=== PATIENT | male | born 1945 | race Caucasian/White ===

== ENCOUNTER 2022-07-11 09:22 | Emergency (ER) | payer MEDICARE, SELFPAY ==
--- NOTE | ~2022-07-11 | CT_ITS ---
EXAMINATION: HEAD CT WITHOUT CONTRAST CERVICAL SPINE CT WITHOUT CONTRAST CLINICAL INFORMATION: Fall. Pain. COMPARISON: None. TECHNIQUE: Contiguous axial imaging of the head was performed without the administration of IV contrast. Axial multidetector volumetric images were also performed through the cervical spine without intravenous contrast. Multiplanar reconstructed images in coronal and sagittal orientations were submitted. This CT examination was performed using dose optimization techniques as appropriate, variously including the following: *Automated exposure control *Adjustment of mA and/or kV according to patient size (this includes techniques or standardized protocols for targeted exams where dose is matched to indication/reason for exam; i.e. extremities or head) *Use of iterative reconstruction technique DOSE: 982 mGy-cm FINDINGS: HEAD: There is no evidence of acute intracranial hemorrhage or territorial infarction. No abnormal mass-effect or midline shift. No extra-axial fluid collections. Lozano to white matter differentiation is well preserved. Mild enlargement of the ventricles, sulci, and extra-axial CSF spaces is indicative of parenchymal volume loss. A few foci of hypoattenuation in the subcortical and periventricular white matter are most consistent with chronic microangiopathic changes. Small lacunar infarct in the right cerebellar hemisphere. Calcific atherosclerosis is present within the cavernous segments of the internal carotid arteries. The soft tissues and osseous structures are normal. The sinuses and mastoid air cells are clear. CERVICAL SPINE: Vertebral body heights are normal. No fractures of the vertebral bodies or posterior elements. Vertebral alignment is normal. No subluxation. Degenerative changes are present at the craniocervical and atlantoaxial articulations, though normal alignment is maintained. Moderate degenerative disc disease is evident at C5-C6 and C6-C7 with marked loss of vertebral disc height, endplate osteophytes, endplate irregularity, subchondral cystic change, and the mineralization, and uncovertebral osteophytes. More mild degenerative disc disease is present at other levels. Facet arthropathy is most severe on the left at C3-C4 and, to a lesser extent, C4-C5. Minimal right-sided facet arthropathy. There is at least mild central canal stenosis at C5-C6 and C6-C7 due to posterior disc osteophyte complexes. Multilevel neural foraminal encroachment is seen on the left due to uncovertebral and facet osteophytes, most notably from C3-C4 through C6-C7. Additional neural foraminal encroachment is present on the right at C4-C5 and C5-C6. No significant paravertebral soft tissue swelling. Atherosclerotic calcifications are present in the carotid arteries. Centrilobular pulmonary emphysema is evident in the apices. CT/CT cervical spine wo IV con IMPRESSION: 1. No acute intracranial pathology. 2. No acute fracture or malalignment in the cervical spine. 3. Multilevel degenerative spondylosis in the cervical spine, most notably at C5-C6 and C6-C7.
--- NOTE | ~2022-07-11 | XR_ITS ---
EXAMINATION: XR FOREARM, RIGHT CLINICAL INFORMATION: Fall COMPARISON: None TECHNIQUE: AP and lateral views of the right forearm were obtained. FINDINGS: The bones and soft tissues are normal. No fracture. Imaged portions of the elbow and wrist are unremarkable. XR/XR forearm RT 2V IMPRESSION: No fracture or dislocation.
--- NOTE | ~2022-07-11 | XR_ITS ---
EXAMINATION: XR HIP, RIGHT CLINICAL INFORMATION: Fall COMPARISON: None TECHNIQUE: Two views of the right hip. FINDINGS: Intramedullary screws through the right femur properly positioned intact. No radiographic evidence of acute fracture or dislocation. Adjacent pelvic bones are intact. There are vascular calcifications. XR/XR hip RT w PEL1V IMPRESSION: * No radiographic evidence of acute fracture. * Intramedullary screws through the right femur intact.
--- NOTE | 2022-07-11 09:32 | ECG_ITS ---
Test Reason : DIZZINESS Blood Pressure : / mmHG Vent. Rate : 063 BPM Atrial Rate : 064 BPM P-R Int : 000 ms QRS Dur : 100 ms QT Int : 448 ms P-R-T Axes : 000 -07 003 degrees QTc Int : 458 ms Normal sinus rhythm ST & T wave abnormality, consider lateral ischemia Abnormal ECG No previous ECGs available Referred By: Lovely Núñez Electronically Signed By:Emile Hager
--- NOTE | 2022-07-11 09:33 | ED.FALL ---
HPI - Fall General Chief Complaint: Fall Stated Complaint: R arm pain post fall yesterday per EMS Time Seen by Provider: 07/11/22 09:26 Source: patient and EMS Mode of arrival: EMS Limitations: no limitations History of Present Illness HPI Narrative: 76 yo with history of HTN, hx mechanical fall Jan 2022 with hip fracture who presents to the ER from home via EMS for evaluation of right forearm pain s/p fall at home yesterday. He is a poor historian. He reports yesterday he was walking with his cane in his home when he thinks he tripped over the edge of a side table. He fell down with his right arm out. He does not think he hit his head. He crawled over to the couch and was able to get up. He did not have his LifeAlert button. He states he lives home alone. He reports ongoing right forearm pain since the fall. No other injuries. No wrist, elbow or shoulder pain. No hip pain. No headache or neck pain. He thinks he was a little dizzy after the fall. He denies any chest pain, SOB or current dizziness. MD complaint: fall Onset (ago): day(s) Fall from: standing Fall witnessed: no Place fall occurred: home Loss of consciousness: none Prolonged down time: no Symptoms prior to fall: none Context: tripped/slipped Location of injury - extremities: right: forearm Severity: moderate Severity scale (1-10): 6 Quality: aching Associated symptoms (after fall): denies Related Data Home Medications Medication Instructions Recorded Confirmed aspirin 81 mg tablet,delayed 1 tab PO BID 07/11/22 07/11/22 release atenolol 50 mg tablet 1 tab PO DAILY 07/11/22 07/11/22 brimonidine 0.2 % eye drops 1 drp ophthalmic-Left BID 07/11/22 07/11/22 cyanocobalamin (vitamin B-12) 2 tab PO DAILY 07/11/22 07/11/22 1,000 mcg tablet enzalutamide 80 mg tablet (Xtandi) 2 tab PO DAILY 07/11/22 07/11/22 Allergies Allergy/AdvReac Type Severity Reaction Status Date / Time No Known Allergies Allergy Unverified 02/22/20 14:41 Review of Systems Review of Systems: Yes all other systems are reviewed and are negative [facility] Social History Social History Advance Directives: Yes Advance Directives Information Provided: No Advance Directives on File: No Physical Exam Vital Signs: Vital Signs: Last Vital Signs Temp 98.7 F 07/11/22 16:25 Pulse 70 07/11/22 16:25 Resp 18 07/11/22 16:25 BP 153/65 H 07/11/22 16:25 Pulse Ox 96 07/11/22 16:25 O2 Del Method 07/11/22 16:25 BMI result Body Mass Index 25.8 Appearance: Alert. Oriented X1. No acute distress. Eyes: Pupils equal, round and reactive to light. ENT: Pharynx normal. Neck: Normal inspection. Neck supple. No midline tenderness. CVS: Normal heart rate and rhythm. Pulses normal. Respiratory: No respiratory distress. Breath sounds normal. Abdomen: Soft and nontender. +BS x4 Skin: Skin warm and dry. Normal skin color. Normal skin turgor. No rashes. Extremities: No lower extremity edema. Right forearm with tenderness throughout, normal ROM of the right elbow and right shoulder, nontender. no swelling of the right forearm, no wounds. normal inspection and ROM of the wrist. Neuro: Oriented X 1. No motor deficit. No sensory deficit. Confused. Course Course Course Narrative: 76 yo male with history of HTN who ambulates with a cane at baseline presents to the ER with right forearm pain s/p mechanical fall yesterday. No gross deformity on exam but tender soft tissues in the right forearm. Will get XR forearm, basic labs, EKG (given reports of dizziness), CT head/neck given unwitnessed fall. Reevaluation(s) Reevaluation #1: XR negative for fracture. Labs showing only mild hyponatremia, Na+ 133 - not likely cause of his fall or resulting in any symptoms. He appears euvolemic vs slightly dry - po fluids encouraged. CT head/c-spine negative. at the bedside - she agrees with PT evaluation and possible STR. Physician observation started at 11am. Patient placed in physician observation because patient is awaiting PT evaluation for the possible need of short term rehab. At the time observation was started patient's vital signs were stable. Patient is alert and oriented to self, place and situation. Neuro exam is non-focal. CV: RRR and lungs are clear. Will continue to monitor. Reevaluation #2: patient found to have a urinary tract infection. he has no leukocytosis or fever. Will start on Ceftin b.i.d. while in the emergency department. Home medications have been reordered. P.o. diet ordered. He was seen by Physical therapy was recommending short-term rehab. Case management put out referrals. Will most likely spend the night in the emergency department while awaiting placement. Will continue to monitor. Medications Administered Discontinued Medications Generic Name Dose Route Start Last Admin Trade Name Dewey PRN Reason Stop Dose Admin Acetaminophen 975 mg 07/11/22 10:19 07/11/22 10:52 Acetaminophen 325 Mg Tablet PO 07/11/22 10:20 975 mg ONCE ONE Administration Medical Decision Making Medical Decision Making [facility] Narrative: 76-year-old male presenting to the ER for evaluation of right arm pain status post mechanical fall. Did endorse some dizziness, unclear before after the fall. Imaging, x-rays, EKG all ordered. Anticipate he will require placement to short-term rehab. Differential Diagnosis Differential Diagnoses: The differential diagnosis associated with the presentation includes mechanical fall, presyncope, syncope, orthostatic hypotension, possible broken forearm vs wrist fracture, doubt JOSEPH or PE, possible UTI causing weakness and gait instability, doubt ICH or traumatic neck injury Admission/Observation Consideration of admission/observation: Escalation of care including admission/observation considered Lab Data [facility] Lab Attestation statement: I reviewed the patient's lab results. mild hyponatremia, mild normocytic anemia 07/11/22 10:04 07/11/22 10:04 Labs: Lab Results 07/11/22 07/11/22 07/11/22 Range/Units 10:04 10:04 10:04 WBC 9.4 (4.8-10.8) X10*3/uL RBC 3.64 L (4.60-5.80) X10*6/uL Hgb 10.4 L (14.0-18.0) g/dl Hct 31.8 L (42.0-52.0) % MCV 87.4 (80.0-98.0) fL MCH 28.6 (27.0-33.0) pg MCHC 32.7 (31.0-36.0) g/dl RDW 14.2 (11.0-16.0) % Plt Count 267 (160-400) X10*3/uL MPV 8.9 L (9.4-12.4) fL Immature Gran % (Auto) 0.3 (0.0-0.4) % Neut % (Auto) 82.5 H (45-73) % Lymph % (Auto) 6.2 L (20-40) % Ferry % (Auto) 10.5 (2-11) % Eos % (Auto) 0.1 (0-4) % Baso % (Auto) 0.4 (0-2) % Lymph # (Auto) 0.6 L (1.2-4.9) X10*3/uL Ferry # (Auto) 1.0 (0.1-1.2) X10*3/uL Eos # (Auto) 0.0 (0.0-0.4) X10*3/uL Baso # (Auto) 0.0 (0.0-0.2) X10*3/uL Abs Immat Gran (auto) 0.03 (0.00-0.03) X10*3/uL Absolute Neuts (auto) 7.8 (2.0-8.3) x10*3/uL Absolute Nucleated RBC 0.000 (0.0-0.012) X10*3/uL Nucleated RBC % (auto) 0.0 (0.0-0.2) /100WBC Sodium 133 L (135-145) mmol/L Potassium 3.9 (3.3-5.1) mmol/L Chloride 100 (96-108) mmol/L Carbon Dioxide 24 (22-29) mmol/L Anion Gap 13 (12-20) BUN 12 (9-16) mg/dL Creatinine 0.79 (0.5-1.4) mg/dL Estim Creat Clear Calc 74.5 Estimated GFR > 60 Random Glucose 169 H (60-115) mg/dL Calcium 8.8 (8.4-10.2) mg/dL Magnesium 1.7 (1.6-2.6) mg/dL Total Bilirubin 1.1 H (0.0-1.0) mg/dL Direct Bilirubin 0.3 (0.0-0.5) mg/dL AST 15 (5-37) U/L ALT < 6 (0-40) U/L Alkaline Phosphatase 66 (39-117) U/L Troponin I High Sens 10.8 (<3.5-35.0) ng/L Total Protein 7.3 (6.5-8.0) g/dL Albumin 3.7 (3.5-5.0) g/dL Urine Color Urine Appearance Urine pH (5.0-9.0) Ur Specific [place] (1.005-1.025) Urine Protein (Neg-Trace) mg/dL Urine Glucose (UA) (Negative) mg/dL Urine Ketones (Negative) mg/dL Urine Blood (Negative) Urine Nitrite (Negative) Ur Leukocyte Esterase (Negative) Urine RBC (0-2) /HPF Urine WBC (0-5) /HPF Ur Squamous Epith Cells (0-2) /HPF Urine Bacteria (None Seen) Hyaline Casts (0-2) /LPF COVID-19 (AUDIE) (Negative) COVID-19 Clin Com 07/11/22 07/11/22 Range/Units 10:04 13:47 WBC (4.8-10.8) X10*3/uL RBC (4.60-5.80) X10*6/uL Hgb (14.0-18.0) g/dl Hct (42.0-52.0) % MCV (80.0-98.0) fL MCH (27.0-33.0) pg MCHC (31.0-36.0) g/dl RDW (11.0-16.0) % Plt Count (160-400) X10*3/uL MPV (9.4-12.4) fL Immature Gran % (Auto) (0.0-0.4) % Neut % (Auto) (45-73) % Lymph % (Auto) (20-40) % Ferry % (Auto) (2-11) % Eos % (Auto) (0-4) % Baso % (Auto) (0-2) % Lymph # (Auto) (1.2-4.9) X10*3/uL Ferry # (Auto) (0.1-1.2) X10*3/uL Eos # (Auto) (0.0-0.4) X10*3/uL Baso # (Auto) (0.0-0.2) X10*3/uL Abs Immat Gran (auto) (0.00-0.03) X10*3/uL Absolute Neuts (auto) (2.0-8.3) x10*3/uL Absolute Nucleated RBC (0.0-0.012) X10*3/uL Nucleated RBC % (auto) (0.0-0.2) /100WBC Sodium (135-145) mmol/L Potassium (3.3-5.1) mmol/L Chloride (96-108) mmol/L Carbon Dioxide (22-29) mmol/L Anion Gap (12-20) BUN (9-16) mg/dL Creatinine (0.5-1.4) mg/dL Estim Creat Clear Calc Estimated GFR Random Glucose (60-115) mg/dL Calcium (8.4-10.2) mg/dL Magnesium (1.6-2.6) mg/dL Total Bilirubin (0.0-1.0) mg/dL Direct Bilirubin (0.0-0.5) mg/dL AST (5-37) U/L ALT (0-40) U/L Alkaline Phosphatase (39-117) U/L Troponin I High Sens (<3.5-35.0) ng/L Total Protein (6.5-8.0) g/dL Albumin (3.5-5.0) g/dL Urine Color Yellow Urine Appearance Cloudy Urine pH 7.5 (5.0-9.0) Ur Specific [place] 1.020 (1.005-1.025) Urine Protein 100 (2+) H (Neg-Trace) mg/dL Urine Glucose (UA) Negative (Negative) mg/dL Urine Ketones Trace (Negative) mg/dL Urine Blood Negative (Negative) Urine Nitrite Negative (Negative) Ur Leukocyte Esterase Moderate (2+) H (Negative) Urine RBC 0-2 (0-2) /HPF Urine WBC >50 H (0-5) /HPF Ur Squamous Epith Cells 0-2 (0-2) /HPF Urine Bacteria 4+ (None Seen) Hyaline Casts 0-2 (0-2) /LPF COVID-19 (AUDIE) Negative (Negative) COVID-19 Clin Com See Note Independent Interpretation I performed an independent interpretation of an: EKG and Plain X-Ray Interpretation: EKG - normal sinus rhythm, HR 63 bpm, artifact present, borderline QRS 100 ms, no ST segment elevation, question trace 1mm ST depression in V5 and V6 Radiology Impression Discussion of test interpretation with radiology: I have reviewed the radiologist's reading. Radiologist Impression: XR/XR forearm RT 2V IMPRESSION: No fracture or dislocation. CT/CT cervical spine wo IV con IMPRESSION: 1.? No acute intracranial pathology. 2.? No acute fracture or malalignment in the cervical spine. 3.? Multilevel degenerative spondylosis in the cervical spine, most notably at C5-C6 and C6-C7. Independent Historian Clinical information obtained from an independent historian. History obtained from or confirmed by: Spouse and EMS Prescription Management I considered prescription management with: Pain Medication and Antibiotic Chronic Conditions Patient?s care impacted by: Hypertension Critical Care Time Critical Care Time Critical Care Time: No Discharge Plan Discharge Clinical Impression: Fall, Contusion of forearm, right, Acute UTI Patient Disposition: Still a Patient Prescriptions: No Action cyanocobalamin (vitamin B-12) 1,000 mcg tablet 2 tab PO DAILY aspirin 81 mg tablet,delayed release (DR/EC) 1 tab PO BID brimonidine 0.2 % drops 1 drp ophthalmic-Left BID atenolol 50 mg tablet 1 tab PO DAILY Xtandi 80 mg tablet 2 tab PO DAILY
[2022-07-11 09:37] VITALS: BP 148/64; BP 189/73; PULSE 73; PULSE 75; RESP 16; TEMP 35.8; O2SAT 96; O2SAT 97; BMI 25.8
[2022-07-11 10:09] LABS: MANUAL DIFF FLAG NO
[2022-07-11 10:11] LABS: Basophils Percent Auto 0.4 % (0-2); Eosinophils Percent Auto 0.1 % (0-4); Hematocrit 31.8 % (42.0-52.0); Hemoglobin 10.4 g/dl (14.0-18.0); Imm Gran Abs Auto 0.03 X10*3/uL (0.00-0.03); Imm Gran Pct Auto 0.3 % (0.0-0.4); Lymphocytes Absolute Auto 0.6 X10*3/uL (1.2-4.9); Lymphocytes Percent Auto 6.2 % (20-40); Mean Corpuscular HGB Conc 32.7 g/dl (31.0-36.0); Mean Corpuscular Hemoglobin 28.6 pg (27.0-33.0); Mean Corpuscular Volume 87.4 fL (80.0-98.0); Mean Platelet Volume 8.9 fL (9.4-12.4); Monocytes Percent Auto 10.5 % (2-11); Neutrophils Absolute Auto 7.8 x10*3/uL (2.0-8.3); Neutrophils Percent Auto 82.5 % (45-73); Platelet Count 267 X10*3/uL (160-400); Red Blood Count 3.64 X10*6/uL (4.60-5.80); Red Cell Distribution Width 14.2 % (11.0-16.0); White Blood Count 9.4 X10*3/uL (4.8-10.8)
[2022-07-11 10:23] LABS: COVID-19 Test Negative (Negative); IDNOW Serial# 16C4AD1C
[2022-07-11 10:46] LABS: Alanine Aminotransferase < 6 U/L (0-40); Albumin Level 3.7 g/dL (3.5-5.0); Alkaline Phosphatase 66 U/L (39-117); Anion Gap 13 (12-20); Aspartate Amino Transferase 15 U/L (5-37); Bilirubin Direct 0.3 mg/dL (0.0-0.5); Bilirubin Total 1.1 mg/dL (0.0-1.0); Blood Urea Nitrogen 12 mg/dL (9-16); Calcium 8.8 mg/dL (8.4-10.2); Carbon Dioxide 24 mmol/L (22-29); Chloride 100 mmol/L (96-108); Creatinine Clr Calc Pharmacy 74.5; Estimated Glomerular Filt Rate > 60; Glucose Random 169 mg/dL (60-115); Magnesium 1.7 mg/dL (1.6-2.6); Potassium 3.9 mmol/L (3.3-5.1); Sodium 133 mmol/L (135-145); Total Protein 7.3 g/dL (6.5-8.0)
[2022-07-11 10:50] LABS: Troponin-I High Sensitivity 10.8 ng/L (<3.5-35.0)
[2022-07-11] MEDS: Acetaminophen 325 MG TABLET 975 MG PO (10:52)
[2022-07-11 11:09] VITALS: BP 127/59; PULSE 58; RESP 18; TEMP 36.4; O2SAT 98
--- NOTE | 2022-07-11 12:46 | PHA.MEDREC ---
Pharmacy Consult ? Medication Reconciliation Pharmacy has completed the medication reconciliation.
[2022-07-11 13:57] LABS: Appearance Urine Cloudy; Color Urine Yellow; Glucose Urine UA Negative (Negative); Leukocyte Esterase Urine Moderate (2+) (Negative); Nitrite Urine Negative (Negative); PH 7.5 (5.0-9.0); UMIC TRIGGER UACC YES; Urine Blood Negative (Negative); Urine Ketones Trace mg/dL (Negative); Urine Protein 100 (2+) mg/dL (Neg-Trace)
[2022-07-11 13:59] LABS: Bacteria Urine 4+ (None Seen); Hyaline Casts Urine 0-2 /LPF (0-2); RBC Urine 0-2 /HPF (0-2); Squamous Epithelial Cell Urine 0-2 /HPF (0-2); UACC Culture Trigger YES; WBC Urine >50 /HPF (0-5)
--- NOTE | 2022-07-11 14:46 | PC.NURSE ---
Physical therapy with patient
[2022-07-11 16:25] VITALS: BP 153/65; PULSE 70; RESP 18; TEMP 37.1; O2SAT 96
[2022-07-11 19:31] VITALS: BP 167/72; PULSE 88; RESP 18; TEMP 36.6; O2SAT 96
[2022-07-11] MEDS: Aspirin Enteric Coated 81 MG TABLET.DR PO (20:43)
[2022-07-11] MEDS: QUEtiapine Fumarate 25 MG TABLET PO (20:43)
[2022-07-11] MEDS: Brimonidine Tartrate 0.2% Oph 5 ML BOTTLE 1 DROP EYE-LEFT (20:59)
[2022-07-11 22:40] VITALS: BP 179/78; PULSE 101; RESP 18; TEMP 36.7; O2SAT 97
[2022-07-12] MEDS: Acetaminophen 325 MG TABLET 975 MG PO (00:18)
[2022-07-12 06:00] VITALS: BP 118/50; PULSE 82; RESP 14; TEMP 36.6; O2SAT 93
[2022-07-12] MEDS: Cyanocobalamin (Vitamin B-12) 1,000 MCG TABLET 1000 MCG PO (08:58)
[2022-07-12] MEDS: atenoloL 50 MG TABLET PO (08:58)
[2022-07-12] MEDS: Aspirin Enteric Coated 81 MG TABLET.DR PO (08:59)
[2022-07-12 09:02] VITALS: BP 122/60; PULSE 74; RESP 24; TEMP 36.4; O2SAT 96
[2022-07-12] MEDS: Brimonidine Tartrate 0.2% Oph 5 ML BOTTLE 1 DROP EYE-LEFT (09:43)
--- NOTE | 2022-07-12 10:20 | MHC.CM.ED ---
Patient remains in ER. Received case management consult on 07/11 due to fall and arm pain. Physical therapy eval completed. Short term rehab is recommended. Patient has been to [facility] in the past and requested referral there. [facility] does not have a bed to offer at this time. However, was willing to offer a bed at [facility] in [place]. Both patient and , Marisa, felt this was too far and requested referral be broadcasted locally. [facility] is able to offer a bed. Patient accepts. Patient can leave at 12pm. Vania BATEMAN booked. Med [facility] with chart. Patient, Marisa, Chauncey FERNANDES and Gayle OSORIO aware. Continue to monitor for d/c needs.
--- NOTE | 2022-07-12 10:34 | PC.NURSE ---
pt resting peacefully. denies pain. reports he ate breakfast and was cleaned up by Nasrin. took all am meds, including eyedrop. VSS. pleasant in conversation. no complaints. waiting for EMS to transfer to [facility]
== END 2022-07-12 12:38 | disposition skilled nursing facility (03) ==
PROVIDERS: Physician Assistant; Emergency Provider Student in an Organized Health Care Education/Training Program; PCP Internal Medicine
DX: S50.11XA Contusion of right forearm, initial encounter (principal); W01.0XXA Fall on same level from slipping, tripping and stumbling without subsequent striking against object, initial encounter; N39.0 Urinary tract infection, site not specified; B96.4 Proteus (mirabilis) (morganii) as the cause of diseases classified elsewhere; I10 Essential (primary) hypertension; Z20.822 Contact with and (suspected) exposure to COVID-19; Y93.89 Activity, other specified; Y92.019 Unspecified place in single-family (private) house as the place of occurrence of the external cause; Y99.9 Unspecified external cause status
CPT/HCPCS: 51701; 70450; 72125; 73090; 73502; 80048; 80076; 81001; 83735; 84484; 85025; 87086; 87088; 87186; 87635; 93005; 97163; 99285

== ENCOUNTER 2022-08-03 06:05 | Outpatient (REF) | payer SELFPAY ==
[2022-08-03 06:02] LABS: MANUAL DIFF FLAG NO
[2022-08-03 06:32] LABS: Basophils Absolute Auto 0.1 X10*3/uL (0.0-0.2); Basophils Percent Auto 0.9 % (0-2); Eosinophils Absolute Auto 0.3 X10*3/uL (0.0-0.4); Eosinophils Percent Auto 4.9 % (0-4); Hematocrit 29.5 % (42.0-52.0); Hemoglobin 9.6 g/dl (14.0-18.0); Imm Gran Abs Auto 0.03 X10*3/uL (0.00-0.03); Imm Gran Pct Auto 0.6 % (0.0-0.4); Lymphocytes Absolute Auto 1.4 X10*3/uL (1.2-4.9); Lymphocytes Percent Auto 26.2 % (20-40); Mean Corpuscular HGB Conc 32.5 g/dl (31.0-36.0); Mean Corpuscular Hemoglobin 27.9 pg (27.0-33.0); Mean Corpuscular Volume 85.8 fL (80.0-98.0); Mean Platelet Volume 9.4 fL (9.4-12.4); Monocytes Absolute Auto 0.8 X10*3/uL (0.1-1.2); Monocytes Percent Auto 15.8 % (2-11); Neutrophils Absolute Auto 2.7 x10*3/uL (2.0-8.3); Neutrophils Percent Auto 51.6 % (45-73); Platelet Count 301 X10*3/uL (160-400); Red Blood Count 3.44 X10*6/uL (4.60-5.80); Red Cell Distribution Width 14.9 % (11.0-16.0); White Blood Count 5.3 X10*3/uL (4.8-10.8)
[2022-08-03 06:36] LABS: Anion Gap 15 (12-20); Blood Urea Nitrogen 13 mg/dL (9-16); Calcium 8.4 mg/dL (8.4-10.2); Carbon Dioxide 22 mmol/L (22-29); Chloride 102 mmol/L (96-108); Estimated Glomerular Filt Rate > 60; Glucose Random 85 mg/dL (60-115); Potassium 4.2 mmol/L (3.3-5.1); Sodium 135 mmol/L (135-145)
== END 2022-08-03 06:06 | disposition home or self-care (01) ==
LOC: HO.MMNH1L 06:05
PROVIDERS: Visit Provider Family Medicine
DX: I10 Essential (primary) hypertension (principal)
CPT/HCPCS: 36415; 80048; 85025

== ENCOUNTER 2022-11-29 17:30 | Inpatient (IN) | payer MEDICARE, SELFPAY ==
--- NOTE | 2022-11-29 | ECG_ITS ---
Test Reason : WEAKNESS Blood Pressure : / mmHG Vent. Rate : 074 BPM Atrial Rate : 000 BPM P-R Int : 000 ms QRS Dur : 096 ms QT Int : 420 ms P-R-T Axes : 000 004 078 degrees QTc Int : 466 ms Artifact in tracing Normal sinus rhythm ST & T wave abnormality, consider anterolateral ischemia Abnormal ECG When compared with ECG of 11-JUL-2022 10:37, No significant changes seen Referred By: Generic ED Physician Electronically Signed By:CHARLEE MEDINA
--- NOTE | ~2022-11-29 | XR_ITS ---
EXAMINATION: XR CHEST CLINICAL INFORMATION: Pneumonia COMPARISON: None available. TECHNIQUE: Frontal view of the chest was obtained. FINDINGS: There is mild cardiac enlargement. There is no evidence of gross CHF. Mild peribronchial thickening and some reticular nodular changes with bibasilar atelectasis. No gross consolidation with air bronchograms is seen. No pleural effusions. XR/XR chest 1V IMPRESSION: No acute intrathoracic disease. Mild cardiomegaly. Bibasilar atelectasis.
[2022-11-29 17:45] VITALS: BP 128/72; BP 129/52; PULSE 70; PULSE 74; RESP 16; TEMP 38.2; O2SAT 95; O2SAT 97; BMI 18.1
[2022-11-29 18:04] LABS: MANUAL DIFF FLAG NO
[2022-11-29 18:05] LABS: Basophils Percent Auto 0.4 % (0-2); Eosinophils Absolute Auto 0.1 X10*3/uL (0.0-0.4); Eosinophils Percent Auto 2.1 % (0-4); Hematocrit 26.8 % (42.0-52.0); Hemoglobin 8.9 g/dl (14.0-18.0); Imm Gran Abs Auto 0.04 X10*3/uL (0.00-0.03); Imm Gran Pct Auto 0.8 % (0.0-0.4); Lymphocytes Absolute Auto 0.6 X10*3/uL (1.2-4.9); Lymphocytes Percent Auto 12.3 % (20-40); Mean Corpuscular HGB Conc 33.2 g/dl (31.0-36.0); Mean Corpuscular Hemoglobin 28.3 pg (27.0-33.0); Mean Corpuscular Volume 85.1 fL (80.0-98.0); Mean Platelet Volume 8.7 fL (9.4-12.4); Monocytes Absolute Auto 0.6 X10*3/uL (0.1-1.2); Monocytes Percent Auto 12.8 % (2-11); Neutrophils Absolute Auto 3.5 x10*3/uL (2.0-8.3); Neutrophils Percent Auto 71.6 % (45-73); Platelet Count 207 X10*3/uL (160-400); Red Blood Count 3.15 X10*6/uL (4.60-5.80); White Blood Count 4.9 X10*3/uL (4.8-10.8)
--- NOTE | 2022-11-29 18:17 | ED_ITS ---
HPI - Weakness General Chief complaint: Weakness Stated complaint: weakness Time Seen by Provider: 11/29/22 18:12 Source: patient and family Mode of arrival: ambulatory Limitations: no limitations History of Present Illness HPI Narrative: Patient is 77 years old with history of central hypertension bladder and pros camacho cancer and dementia brought by family for increased weakness and little worsening of the confusion for last few days patient recently was treated with antibiotic for UTI a month ago no fever no chills no cough no abdominal pain no recent fall no cough or shortness of breath Related Data Home Medications Medication Instructions Recorded Confirmed enzalutamide 80 mg tablet (Xtandi) 2 tab PO DAILY 07/11/22 11/29/22 atenolol 25 mg tablet 25 mg PO DAILY 11/29/22 11/29/22 cyanocobalamin (vitamin B-12) 2,000 mcg PO DAILY 11/29/22 11/29/22 1,000 mcg tablet enzalutamide 80 mg tablet (Xtandi) 80 mg PO DAILY 11/29/22 11/29/22 Allergies Allergy/AdvReac Type Severity Reaction Status Date / Time No Known Allergies Allergy Unverified 02/22/20 14:41 Review of Systems Review of Systems: Yes all other systems are reviewed and are negative [facility] Past Medical History Medical History Bladder cancer Dementia Essential hypertension Hyponatremia Social History Social History Patient Tobacco Use Status: Former Tobacco user Advance Directives: Yes Advance Directives Information Provided: No Advance Directives on File: No Nutrition Risks: No Nutritional Risk Physical Exam Vital Signs: Vital Signs: Last Vital Signs Temp 97.7 F 11/30/22 00:05 Pulse 79 11/30/22 00:05 Resp 16 11/30/22 00:05 BP 134/63 11/30/22 00:05 Pulse Ox 97 11/30/22 00:05 O2 Del Method Room Air 11/30/22 00:05 BMI result Body Mass Index 18.1 Appearance: Alert. Oriented X2. No acute distress. Eyes: PERRLA, No Nystagmus ENT: Pharynx normal. Oral Mucosa moist Neck: Normal inspection. Neck supple. CVS: Normal heart rate and rhythm. Pulses normal. Respiratory: No respiratory distress. Equal air entry bilateral, no wheezing/rales/rhonchi Abdomen: Soft and nontender. Bowel sounds are present, no mass palpable, no CVA tenderness Skin: Skin warm and dry. Normal skin color. Normal skin turgor. Extremities: No lower extremity edema. No calf tenderness Neuro: Oriented X2. No motor deficit. No sensory deficit.No cerebellar signs , cranial nerves II-XII intact Medications Administered Generic Name Dose Route Start Last Admin Trade Name Freq PRN Reason Stop Dose Admin Sodium Chloride 3 ml 11/30/22 00:00 11/29/22 23:44 0.9 % Sodium Chloride Flush 3 Ml Syringe IVFLUSH 3 ml QSHIFT CHAVEZ Administration Discontinued Medications Generic Name Dose Route Start Last Admin Trade Name Freq PRN Reason Stop Dose Admin Diphenhydramine HCl 50 mg 11/29/22 23:05 11/29/22 23:30 Diphenhydramine Hcl 50 Mg/Ml Vial IVPUSH 11/29/22 23:06 50 mg ONCE ONE Administration Sodium Chloride 1,000 mls @ 999 mls/hr 11/29/22 19:09 11/29/22 20:21 Ns IV 11/29/22 20:09 Infused .Q1H1M ONE Infusion Medical Decision Making Medical Decision Making [facility] Narrative: Patient has increased weakness and confusion workup shows hyponatremia with sodium of 124 with baseline sodium of 132, last sodium level was 135 on 08/03/2022. 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 Also UA showed WBC with no bacteria. Etiology of SIADH is not very clear for now will restrict the fluid to 1500 cc a day recheck sodium level in a.m. admit Differential Diagnosis UTI/metabolic/hyponatremia Consult Healthcare Provider Management of the patient was discussed with: Hospitalist Lab Data [facility] Lab Attestation statement: I reviewed the patient's lab results. 11/29/22 18:01 11/29/22 18:01 Labs: Lab Results 11/29/22 11/29/22 11/29/22 Range/Units 18:01 18:01 19:21 WBC 4.9 (4.8-10.8) X10*3/uL RBC 3.15 L (4.60-5.80) X10*6/uL Hgb 8.9 L (14.0-18.0) g/dl Hct 26.8 L (42.0-52.0) % MCV 85.1 (80.0-98.0) fL MCH 28.3 (27.0-33.0) pg MCHC 33.2 (31.0-36.0) g/dl RDW 17.0 H (11.0-16.0) % Plt Count 207 D (160-400) X10*3/uL MPV 8.7 L (9.4-12.4) fL Immature Gran % (Auto) 0.8 H (0.0-0.4) % Neut % (Auto) 71.6 (45-73) % Lymph % (Auto) 12.3 L (20-40) % [place] % (Auto) 12.8 H (2-11) % Eos % (Auto) 2.1 (0-4) % Baso % (Auto) 0.4 (0-2) % Lymph # (Auto) 0.6 L (1.2-4.9) X10*3/uL [place] # (Auto) 0.6 (0.1-1.2) X10*3/uL Eos # (Auto) 0.1 (0.0-0.4) X10*3/uL Baso # (Auto) 0.0 (0.0-0.2) X10*3/uL Abs Immat Gran (auto) 0.04 H (0.00-0.03) X10*3/uL Absolute Neuts (auto) 3.5 (2.0-8.3) x10*3/uL Absolute Nucleated RBC 0.000 (0.0-0.012) X10*3/uL Nucleated RBC % (auto) 0.0 (0.0-0.2) /100WBC Sodium 124 L (135-145) mmol/L Potassium 4.6 (3.3-5.1) mmol/L Chloride 92 L (96-108) mmol/L Carbon Dioxide 23 (22-29) mmol/L Anion Gap 14 (12-20) BUN 11 (9-16) mg/dL Creatinine 0.72 (0.5-1.4) mg/dL Estim Creat Clear Calc 69.3 Estimated GFR > 60 Random Glucose 97 (60-115) mg/dL Osmolality (281-305) mosm/kg Lactic Acid 1.0 (0.5-2.0) mmol/L Calcium 9.2 D (8.4-10.2) mg/dL Total Bilirubin 0.6 (0.0-1.0) mg/dL AST 14 (5-37) U/L ALT 5 (0-40) U/L Alkaline Phosphatase 78 (39-117) U/L Total Protein 7.6 (6.5-8.0) g/dL Albumin 3.1 L (3.5-5.0) g/dL TSH 2.20 (0.32-4.0) uIU/mL Urine Color Urine Appearance Urine pH (5.0-9.0) Ur Specific [place] (1.005-1.025) Urine Protein (Neg-Trace) mg/dL Urine Glucose (UA) (Negative) mg/dL Urine Ketones (Negative) mg/dL Urine Blood (Negative) Urine Nitrite (Negative) Ur Leukocyte Esterase (Negative) Urine RBC (0-2) /HPF Urine WBC (0-5) /HPF Ur Squamous Epith Cells (0-2) /HPF Urine Bacteria (None Seen) Hyaline Casts (0-2) /LPF Urine Osmolality (373-1093) mosm/kg Ur Random Sodium mmol/L Influenza Type A (PCR) (Negative) Influenza Type B (PCR) (Negative) RSV RNA Qual (PCR) (Negative) SARS-CoV-2 RNA (RT-PCR) (Negative) 11/29/22 11/29/22 11/29/22 Range/Units 20:05 21:42 21:42 WBC (4.8-10.8) X10*3/uL RBC (4.60-5.80) X10*6/uL Hgb (14.0-18.0) g/dl Hct (42.0-52.0) % MCV (80.0-98.0) fL MCH (27.0-33.0) pg MCHC (31.0-36.0) g/dl RDW (11.0-16.0) % Plt Count (160-400) X10*3/uL MPV (9.4-12.4) fL Immature Gran % (Auto) (0.0-0.4) % Neut % (Auto) (45-73) % Lymph % (Auto) (20-40) % [place] % (Auto) (2-11) % Eos % (Auto) (0-4) % Baso % (Auto) (0-2) % Lymph # (Auto) (1.2-4.9) X10*3/uL [place] # (Auto) (0.1-1.2) X10*3/uL Eos # (Auto) (0.0-0.4) X10*3/uL Baso # (Auto) (0.0-0.2) X10*3/uL Abs Immat Gran (auto) (0.00-0.03) X10*3/uL Absolute Neuts (auto) (2.0-8.3) x10*3/uL Absolute Nucleated RBC (0.0-0.012) X10*3/uL Nucleated RBC % (auto) (0.0-0.2) /100WBC Sodium (135-145) mmol/L Potassium (3.3-5.1) mmol/L Chloride (96-108) mmol/L Carbon Dioxide (22-29) mmol/L Anion Gap (12-20) BUN (9-16) mg/dL Creatinine (0.5-1.4) mg/dL Estim Creat Clear Calc Estimated GFR Random Glucose (60-115) mg/dL Osmolality 264 L (281-305) mosm/kg Lactic Acid (0.5-2.0) mmol/L Calcium (8.4-10.2) mg/dL Total Bilirubin (0.0-1.0) mg/dL AST (5-37) U/L ALT (0-40) U/L Alkaline Phosphatase (39-117) U/L Total Protein (6.5-8.0) g/dL Albumin (3.5-5.0) g/dL TSH (0.32-4.0) uIU/mL Urine Color Yellow Urine Appearance Cloudy Urine pH 8.0 (5.0-9.0) Ur Specific [place] 1.015 (1.005-1.025) Urine Protein Trace (Neg-Trace) mg/dL Urine Glucose (UA) Negative (Negative) mg/dL Urine Ketones Negative (Negative) mg/dL Urine Blood Negative (Negative) Urine Nitrite Negative (Negative) Ur Leukocyte Esterase Small (1+) H (Negative) Urine RBC 0-2 (0-2) /HPF Urine WBC 6-10 H (0-5) /HPF Ur Squamous Epith Cells 0-2 (0-2) /HPF Urine Bacteria None Seen (None Seen) Hyaline Casts 0-2 (0-2) /LPF Urine Osmolality (373-1093) mosm/kg Ur Random Sodium mmol/L Influenza Type A (PCR) NEGATIVE (Negative) Influenza Type B (PCR) NEGATIVE (Negative) RSV RNA Qual (PCR) NEGATIVE (Negative) SARS-CoV-2 RNA (RT-PCR) NEGATIVE (Negative) 11/29/22 11/29/22 Range/Units 21:42 21:42 WBC (4.8-10.8) X10*3/uL RBC (4.60-5.80) X10*6/uL Hgb (14.0-18.0) g/dl Hct (42.0-52.0) % MCV (80.0-98.0) fL MCH (27.0-33.0) pg MCHC (31.0-36.0) g/dl RDW (11.0-16.0) % Plt Count (160-400) X10*3/uL MPV (9.4-12.4) fL Immature Gran % (Auto) (0.0-0.4) % Neut % (Auto) (45-73) % Lymph % (Auto) (20-40) % [place] % (Auto) (2-11) % Eos % (Auto) (0-4) % Baso % (Auto) (0-2) % Lymph # (Auto) (1.2-4.9) X10*3/uL [place] # (Auto) (0.1-1.2) X10*3/uL Eos # (Auto) (0.0-0.4) X10*3/uL Baso # (Auto) (0.0-0.2) X10*3/uL Abs Immat Gran (auto) (0.00-0.03) X10*3/uL Absolute Neuts (auto) (2.0-8.3) x10*3/uL Absolute Nucleated RBC (0.0-0.012) X10*3/uL Nucleated RBC % (auto) (0.0-0.2) /100WBC Sodium (135-145) mmol/L Potassium (3.3-5.1) mmol/L Chloride (96-108) mmol/L Carbon Dioxide (22-29) mmol/L Anion Gap (12-20) BUN (9-16) mg/dL Creatinine (0.5-1.4) mg/dL Estim Creat Clear Calc Estimated GFR Random Glucose (60-115) mg/dL Osmolality (281-305) mosm/kg Lactic Acid (0.5-2.0) mmol/L Calcium (8.4-10.2) mg/dL Total Bilirubin (0.0-1.0) mg/dL AST (5-37) U/L ALT (0-40) U/L Alkaline Phosphatase (39-117) U/L Total Protein (6.5-8.0) g/dL Albumin (3.5-5.0) g/dL TSH (0.32-4.0) uIU/mL Urine Color Urine Appearance Urine pH (5.0-9.0) Ur Specific Shar[place] (1.005-1.025) Urine Protein (Neg-Trace) mg/dL Urine Glucose (UA) (Negative) mg/dL Urine Ketones (Negative) mg/dL Urine Blood (Negative) Urine Nitrite (Negative) Ur Leukocyte Esterase (Negative) Urine RBC (0-2) /HPF Urine WBC (0-5) /HPF Ur Squamous Epith Cells (0-2) /HPF Urine Bacteria (None Seen) Hyaline Casts (0-2) /LPF Urine Osmolality 448 (373-1093) mosm/kg Ur Random Sodium 96.0 mmol/L Influenza Type A (PCR) (Negative) Influenza Type B (PCR) (Negative) RSV RNA Qual (PCR) (Negative) SARS-CoV-2 RNA (RT-PCR) (Negative) Independent Interpretation I performed an independent interpretation of an: EKG Interpretation: Sinus rhythm 74 beats per minute nonspecific ST T-wave changes no acute ischemia Discharge Plan Discharge Clinical Impression: Acute hyponatremia Patient Disposition: Admitted As Inpatient
--- OUTSIDE RECORDS SUMMARY | 2022-11-29 18:17 | XMS_ITS | Continuity of Care Document ---
Author Name Unknown Organization [facility] Address [address] [place] [address]- Care Team Providers Care Code Enforcement Officer Name Role Phone Not on Staff, PCP Primary Care Physician Unavail able Encounter [facility] Date(s): 09/29/21 - 11/02/[address] [address] Attending Physician: Corie Moon NP Admitting Physician: Corie Moon NP Referring Physician: Corie Moon NP Allergies, Adverse Reactions, Alerts No Known Allergies
--- OUTSIDE RECORDS SUMMARY | 2022-11-29 18:17 | XMS_ITS | Continuity of Care Document ---
Author Name Unknown Organization [facility] Address [address] [place] [id number] Care Team Providers Care Columnist/Commentator Name Role Phone Not on Staff, PCP Primary Care Physician Unavail able [place] [facility] [place]/27/[address] [id number] Attending Physician: Eleanor Jones Admitting Physician: Eleanor Jones Referring Physician: AdmtrEleanor Allergies, Adverse Reactions, Alerts No Known Allergies Immunizations Given and Recorded Vaccine Date Status Refusal Reason SARS-CoV-2 (COVID-19) mRNA BNT-162b2 vac 05/06/21 Recorded SARS-CoV-2 (COVID-19) mRNA BNT-162b2 vac 04/05/21 Recorded SARS-CoV-2 (COVID-19) mRNA BNT-162b2 vac 08/13/20 Recorded SARS-CoV-2 (COVID-19) mRNA BNT-162b2 vac 07/22/20 Recorded influenza virus vaccine, inactivated 05/14/17 Rancho rded influenza virus vaccine, inactivated 03/28/15 Rancho rded influenza virus vaccine, inactivated 07/13/14 Rancho rded influenza virus vaccine, inactivated 03/08/13 Rancho rded influenza virus vaccine, inactivated 05/06/12 Rancho rded influenza virus vaccine, inactivated 04/13/11 Rancho rded influenza virus vaccine, inactivated 03/31/10 Rancho rded influenza virus vaccine, inactivated 05/19/09 Rancho rded influenza virus vaccine, inactivated 03/02/08 Rancho rded influenza virus vaccine, inactivated 03/30/07 Rancho rded tetanus/diphtheria/pertussis, acel(Tdap) 10/03/13 Recorded tetanus/diphtheria/pertussis, acel(Tdap) 02/21/07 Recorded pneumococcal 23-valent vaccine 07/18/10 Recorded pneumococcal 23-valent vaccine 12/19/02 Recorded Medications albuterol-ipratropium 3 mg-0.5 mg/3 ml inhalation solution BAND Nebulizer, Every 4 hours, PRN Wheezing/Shortness of Breath, 0 Refills, Maintenance, 02/13/22 11:06:00 EDT, Inhalation Solution, Partial fill upon patient request if the prescription is for a schedule II opioid drug. Start Date: 02/13/22 Status: Ordered apixaban 2.5 mg oral tablet 1 tablet = 2.5 mg, By Mouth, 2 times a day, 0 Refills, Maintenance, 02/13/22 11:03:00 EDT, Tablet, Partial fill upon patient request if the prescription is for a schedule II opioid drug. Start Date: 02/13/22 Stop Date: 02/26/22 Status: Ordered aspirin 81 mg oral capsule 1 capsule = 81 mg, By Mouth, 2 times a day, only to start after completion of eliquis for next 13 days., # 42 capsule, 0 Refills, Maintenance, 02/13/22 11:04:00 EDT, [facility], Partial fill upon patient request if the prescription is fo... Start Date: 02/13/22 Stop Date: 03/06/22 Status: Ordered atenolol 50 mg oral tablet 50 mg, 1, tablet, By Mouth, Daily, # 30 tablet, Refills 0, Maintenance, 02/09/22 23:03:00 EDT, Partial fill upon patient request if the prescription is for a schedule II opioid drug. Start Date: 02/09/22 Status: Ordered brimonidine 0.2% ophthalmic solution 1 drops, Eyes, Both, Every 8 hours, # 10 mL, 0 Refills, Maintenance, 02/09/22 23:03:00 EDT, Solution, Partial fill upon patient request if the prescription is for a schedule II opioid drug. Start Date: 02/09/22 Status: Ordered Docusate Sodium Capsule 100 mg, 1, capsule, By Mouth, 2 times a day, PRN, Refills 0, Maintenance, Pain , Moderate, 02/13/2211:06:00 EDT, Partial fill upon patient request if the prescription is for a schedule II opioid drug. Start Date: 02/13/22 Status: Ordered Triamcinolone 0.1% Topical 1 applicator, Topically, 2 times a day, 0 Refills, Maintenance, Ointment Start Date: 02/13/22 Status: Ordered Social History Social History Type Response Tobacco Use: 4 or less cigar ettes(less than 1/4 pack)/day in last 30 days. Sex Patient Care team information Care Team Personnel Name: Not on Staff, PCP Position: S Physician (General Medicine) Member Role: PCP Care Team Related Persons Name: LISA PALMER Address: home [address] [place] [address] Name: JOSE CARLOS PALMER Address: home [address] [place] [address]
[2022-11-29 18:20] LABS: Alanine Aminotransferase 5 U/L (0-40); Albumin Level 3.1 g/dL (3.5-5.0); Alkaline Phosphatase 78 U/L (39-117); Anion Gap 14 (12-20); Aspartate Amino Transferase 14 U/L (5-37); Bilirubin Total 0.6 mg/dL (0.0-1.0); Blood Urea Nitrogen 11 mg/dL (9-16); Calcium 9.2 mg/dL (8.4-10.2); Carbon Dioxide 23 mmol/L (22-29); Chloride 92 mmol/L (96-108); Creatinine Clr Calc Pharmacy 69.3; Estimated Glomerular Filt Rate > 60; Glucose Random 97 mg/dL (60-115); Potassium 4.6 mmol/L (3.3-5.1); Sodium 124 mmol/L (135-145); Total Protein 7.6 g/dL (6.5-8.0)
[2022-11-29] MEDS: 0.9 % Sodium Chloride 1,000 ML 999 ML IV (19:17)
[2022-11-29 20:27] LABS: Osmolality, Serum 264 mosm/kg (281-305)
[2022-11-29 21:19] VITALS: BP 138/58; PULSE 68; RESP 18; TEMP 36.6; O2SAT 96
[2022-11-29 22:18] LABS: Appearance Urine Cloudy; Color Urine Yellow; Glucose Urine UA Negative (Negative); Leukocyte Esterase Urine Small (1+) (Negative); Nitrite Urine Negative (Negative); Specific Gravity - Urine 1.015 (1.005-1.025); UMIC TRIGGER UACC YES; Urine Blood Negative (Negative); Urine Ketones Negative (Negative); Urine Protein Trace mg/dL (Neg-Trace)
[2022-11-29 22:21] LABS: Osmolality Urine 448 mosm/kg (373-1093)
[2022-11-29 22:24] LABS: Bacteria Urine None Seen (None Seen); Hyaline Casts Urine 0-2 /LPF (0-2); RBC Urine 0-2 /HPF (0-2); Squamous Epithelial Cell Urine 0-2 /HPF (0-2); UACC Culture Trigger YES
--- NOTE | 2022-11-29 23:04 | P.HPHOSP_ITS ---
History of Present Illness Date of Service: 11/29/22 Chief Complaint: Weakness This is a 77-year-old male with pertinent history of essential hypertension, bladder and prostate cancer, dementia was brought to the emergency department for evaluation of generalized weakness. Patient has dementia and is a poor historian. Unable to obtain history from the patient. History obtained from ER provider and family at bedside. As per the son, patient states he got a call that the patient was weak. He went to evaluate the patient and found that he was weaker than usual. No specific complaints. The family thinks that the patient has been overall weaker than usual. No fever, chills, cough, chest discomfort, abdominal pain, changes in urinary or bowel habits. Patient was recently treated with p.o. antibiotics for UTI. Unable to obtain review of systems In the emergency department, sodium was found to be 124 Review of Systems Review of Systems: Yes Unobtainable due to mental condition [facility] Medical History (Updated 11/29/22 @ 23:10 by Lamin Lambert MD) Bladder cancer Dementia Essential hypertension Hyponatremia Pertinent family history: Unable to obtain. Not significant Social History Advance Directives: Yes Advance Directives Information Provided: No Advance Directives on File: No Meds Allergies Allergy/AdvReac Type Severity Reaction Status Date / Time No Known Allergies Allergy Unverified 02/22/20 14:41 Active Medications: Current Medications Pharmacy Consult (Consult Rx Perform Med Rec) 1 each MISCELLANE ONCE PRN PRN Reason: Consult order Home Medications Medication Instructions Recorded Confirmed Last Taken Type aspirin 81 mg tablet,delayed 1 tab PO BID 07/11/22 07/11/22 Unknown History release atenolol 50 mg tablet 1 tab PO DAILY 07/11/22 07/11/22 Unknown History brimonidine 0.2 % eye drops 1 drp ophthalmic-Left BID 07/11/22 07/11/22 Unknown History cyanocobalamin (vitamin B-12) 2 tab PO DAILY 07/11/22 07/11/22 Unknown History 1,000 mcg tablet enzalutamide 80 mg tablet (Xtandi) 2 tab PO DAILY 07/11/22 07/11/22 Unknown History Physical Exam Vital Signs and Narrative: Vital Signs: Last Vital Signs Temp 97.9 F 11/29/22 21:19 Pulse 68 11/29/22 21:19 Resp 18 11/29/22 21:19 BP 138/58 L 11/29/22 21:19 Pulse Ox 96 11/29/22 21:19 O2 Del Method Room Air 11/29/22 21:19 BMI result Body Mass Index 18.1 Elderly male lying in bed in no distress Neck supple, no JVD Regular rate and rhythm, S1-S2 heard Regular breath sounds bilaterally, no wheezing or crackles appreciated Abdomen soft nontender, no guarding, no rigidity Patient is awake, alert and oriented to self, disoriented to place, time and person ; no focal motor deficit Psych: Normal mood No pedal edema Results Labs 11/29/22 18:01 11/29/22 18:01 Labs: Laboratory Results - last 24 hr 11/29/22 11/29/22 11/29/22 18:01 18:01 19:21 MCV 85.1 MCH 28.3 MCHC 33.2 RDW 17.0 H Plt Count 207 D MPV 8.7 L Immature Gran % (Auto) 0.8 H Neut % (Auto) 71.6 Lymph % (Auto) 12.3 L [place] % (Auto) 12.8 H Eos % (Auto) 2.1 Baso % (Auto) 0.4 Lymph # (Auto) 0.6 L [place] # (Auto) 0.6 Eos # (Auto) 0.1 Baso # (Auto) 0.0 Abs Immat Gran (auto) 0.04 H Absolute Neuts (auto) 3.5 Absolute Nucleated RBC 0.000 Nucleated RBC % (auto) 0.0 Anion Gap 14 Estim Creat Clear Calc 69.3 Estimated GFR > 60 Random Glucose 97 Osmolality Lactic Acid 1.0 Calcium 9.2 D Total Bilirubin 0.6 AST 14 ALT 5 Alkaline Phosphatase 78 Total Protein 7.6 Albumin 3.1 L Urine Color Urine Appearance Urine pH Ur Specific [place] Urine Protein Urine Glucose (UA) Urine Ketones Urine Blood Urine Nitrite Ur Leukocyte Esterase Urine RBC Urine WBC Ur Squamous Epith Cells Urine Bacteria Hyaline Casts Urine Osmolality Ur Random Sodium 11/29/22 11/29/22 11/29/22 20:05 21:42 21:42 MCV MCH MCHC RDW Plt Count MPV Immature Gran % (Auto) Neut % (Auto) Lymph % (Auto) [place] % (Auto) Eos % (Auto) Baso % (Auto) Lymph # (Auto) [place] # (Auto) Eos # (Auto) Baso # (Auto) Abs Immat Gran (auto) Absolute Neuts (auto) Absolute Nucleated RBC Nucleated RBC % (auto) Anion Gap Estim Creat Clear Calc Estimated GFR Random Glucose Osmolality 264 L Lactic Acid Calcium Total Bilirubin AST ALT Alkaline Phosphatase Total Protein Albumin Urine Color Yellow Urine Appearance Cloudy Urine pH 8.0 Ur Specific [place] 1.015 Urine Protein Trace Urine Glucose (UA) Negative Urine Ketones Negative Urine Blood Negative Urine Nitrite Negative Ur Leukocyte Esterase Small (1+) H Urine RBC 0-2 Urine WBC 6-10 H Ur Squamous Epith Cells 0-2 Urine Bacteria None Seen Hyaline Casts 0-2 Urine Osmolality 448 Ur Random Sodium 11/29/22 21:42 MCV MCH MCHC RDW Plt Count MPV Immature Gran % (Auto) Neut % (Auto) Lymph % (Auto) [place] % (Auto) Eos % (Auto) Baso % (Auto) Lymph # (Auto) [place] # (Auto) Eos # (Auto) Baso # (Auto) Abs Immat Gran (auto) Absolute Neuts (auto) Absolute Nucleated RBC Nucleated RBC % (auto) Anion Gap Estim Creat Clear Calc Estimated GFR Random Glucose Osmolality Lactic Acid Calcium Total Bilirubin AST ALT Alkaline Phosphatase Total Protein Albumin Urine Color Urine Appearance Urine pH Ur Specific [place] Urine Protein Urine Glucose (UA) Urine Ketones Urine Blood Urine Nitrite Ur Leukocyte Esterase Urine RBC Urine WBC Ur Squamous Epith Cells Urine Bacteria Hyaline Casts Urine Osmolality Ur Random Sodium 96.0 Imaging Radiologist's Impressions: Impressions Chest X-Ray 11/29/22 19:39 IMPRESSION: No acute intrathoracic disease. Mild cardiomegaly. Bibasilar atelectasis. Assessment and Plan (1) Hyponatremia: Status: Acute Plan This is a 77-year-old male with pertinent history of essential hypertension, bladder and prostate cancer was brought to the emergency department for evaluation of generalized weakness. #. Hypotonic hyponatremia. Unclear baseline and chronicity. Urine studies suggestive of SIADH. Obtaining TSH and morning cortisol. Placed patient on fluid restriction. Monitor sodium #. Essential hypertension on atenolol #. History of prostate cancer on enzalutamide #. Normocytic anemia Med rec pending DVT prophylaxis: Lovenox Full code. Discussed with family at bedside Time Spent With Patient Time: Total time managing care of this patient today ____ minutes. Quality Stroke Does the patient have a stroke diagnosis?: No VTE Prior VTE?: No VTE Risk Level:: Medical - moderate - high VTE Device Contraindication: Treatment Not Indicated VTE Drug Contraindication: N/A - Med Ordered
[2022-11-29] MEDS: diphenhydrAMINE HCL 50 MG/ML VIAL IVPUSH (23:30)
[2022-11-29 23:36] VITALS: BP 127/64; PULSE 73; RESP 14; O2SAT 95
[2022-11-29 23:44] LABS: Influenza A PCR NEGATIVE (Negative); Influenza B PCR NEGATIVE (Negative); Resp Syncy Virus RNA Qual PCR NEGATIVE (Negative); SARS COV2 PCR INHOUSE NEGATIVE (Negative)
[2022-11-29] MEDS: 0.9 % Sodium Chloride Flush 3 ML SYRINGE IVFLUSH (23:44)
[2022-11-30] VITALS (7 sets, daily range): BP systolic 105–144; BP diastolic 46–67; PULSE 62–79; RESP 16–20; TEMP 36.2–37; O2SAT 92–98; BMI 18.9
--- NOTE | 2022-11-30 | ECG_ITS ---
Test Reason : vtach Blood Pressure : / mmHG Vent. Rate : 071 BPM Atrial Rate : 071 BPM P-R Int : 150 ms QRS Dur : 104 ms QT Int : 422 ms P-R-T Axes : 078 013 084 degrees QTc Int : 458 ms Sinus rhythm with Premature atrial complexes ST depression, consider subendocardial injury Abnormal ECG When compared with ECG of 29-NOV-2022 17:46, Premature atrial complexes are now Present T wave inversion less evident in Anterolateral leads Referred By: Juan Shetty Electronically Signed By:Emile Hager
[2022-11-30 06:05] LABS: MANUAL DIFF FLAG NO
[2022-11-30 06:09] LABS: Basophils Percent Auto 0.6 % (0-2); Eosinophils Absolute Auto 0.1 X10*3/uL (0.0-0.4); Eosinophils Percent Auto 0.8 % (0-4); Hematocrit 24.9 % (42.0-52.0); Hemoglobin 8.2 g/dl (14.0-18.0); Imm Gran Abs Auto 0.04 X10*3/uL (0.00-0.03); Imm Gran Pct Auto 0.6 % (0.0-0.4); Lymphocytes Absolute Auto 0.7 X10*3/uL (1.2-4.9); Lymphocytes Percent Auto 10.8 % (20-40); Mean Corpuscular HGB Conc 32.9 g/dl (31.0-36.0); Mean Corpuscular Hemoglobin 27.7 pg (27.0-33.0); Mean Corpuscular Volume 84.1 fL (80.0-98.0); Mean Platelet Volume 9.3 fL (9.4-12.4); Monocytes Absolute Auto 0.9 X10*3/uL (0.1-1.2); Monocytes Percent Auto 13.3 % (2-11); Neutrophils Absolute Auto 4.7 x10*3/uL (2.0-8.3); Neutrophils Percent Auto 73.9 % (45-73); Platelet Count 214 X10*3/uL (160-400); Red Blood Count 2.96 X10*6/uL (4.60-5.80); White Blood Count 6.4 X10*3/uL (4.8-10.8)
--- NOTE | 2022-11-30 06:14 | MHC.EDTECH ---
Patient was incont. of a lg amount of urine,Patient was cleaned and bed linen was changed and pt was repositioned to comfort. Call hodges within reach
--- NOTE | 2022-11-30 06:25 | MHC.EDTECH ---
Patient was incont. of a lg amount of soft brown stool,p[t was cleaned and repositioned.Vitals taken
[2022-11-30 06:31] LABS: Anion Gap 12 (12-20); Blood Urea Nitrogen 9 mg/dL (9-16); Calcium 8.5 mg/dL (8.4-10.2); Carbon Dioxide 21 mmol/L (22-29); Chloride 96 mmol/L (96-108); Creatinine Clr Calc Pharmacy 79.2; Estimated Glomerular Filt Rate > 60; Glucose Random 91 mg/dL (60-115); Potassium 4.3 mmol/L (3.3-5.1); Sodium 125 mmol/L (135-145)
[2022-11-30 06:52] LABS: Cortisol Random 13.5 ug/dL
--- NOTE | 2022-11-30 07:22 | PC.NURSE ---
Alert but only oriented to self. Denies pain or discomfort. Declined breakfast at this time stating he is not hungry. VSS , nsr on monitor. BP 119/50, pulse 61, denies dizziness or lightheadedness. Resting comfortably in bed with eyes closed.
[2022-11-30] MEDS: 0.9 % Sodium Chloride Flush 3 ML SYRINGE IVFLUSH ×2 (07:26→20:18)
[2022-11-30] MEDS: Enoxaparin Sodium 40 MG/0.4 ML SYRINGE SUBCUT (08:17)
--- NOTE | 2022-11-30 08:19 | PC.NURSE ---
Good po intake for breakfast. vss. calm and cooperative.
--- NOTE | 2022-11-30 08:45 | MHC.CM.PN ---
Patient has a diagnosis of Dementia; CM spoke with /HCP/Marisa @ [phone] (cell is [phone]) and addressed DUTTA with her (original will be mailed to Marisa and a copy has been placed on the chart). Patient lives in a 2 family house on the first floor with his and his Son/hcp/Noah Rdz lives on the second floor.Other Son/Aryan can be reached at [phone]. Patient receives a [facility] [employer] [facility] M/W/F from 9-noon and they are working on services for /. Patient is also active with [facility]. Home/resume said services is the goal vs STR at [facility] choice SNF([facility]/recently there)pending PT eval. CM has initiated and will follow for dc planning. Patient has received [employer] vax x3 and his PCP is Dr. Middleton.
--- NOTE | 2022-11-30 08:47 | PHA.MEDREC ---
Pharmacy Consult ? Medication Reconciliation Pharmacy has completed the medication reconciliation. spoke with patients son and used claim history to complete med rec.
--- NOTE | 2022-11-30 09:30 | PC.NURSE ---
Transferred to room 470 by transport
--- NOTE | 2022-11-30 11:06 | HO.PM.IMPN ---
Subjective Subjective Date of Service: 11/30/22 Review of Systems follow up hyponatremia no pain, eating Physical Exam Vital Signs: Vital Signs: Last Vital Signs Temp 97.6 F 11/30/22 09:55 Pulse 63 11/30/22 09:55 Resp 20 11/30/22 09:55 BP 144/67 H 11/30/22 09:55 Pulse Ox 95 11/30/22 09:55 O2 Del Method Room Air 11/30/22 09:55 BMI result Body Mass Index 18.1 Appearing in no acute distress lung sounds are clear to auscultation heart regular rate rhythm, clear S1, S2 positive bowel sounds, abdomen is soft, nontender neuro patient is alert x3, no focal deficits Objective Data Active Medications Acetaminophen (Acetaminophen 325 Mg Tablet) 650 mg PO Q6H PRN PRN Reason: Pain, Mild (Pain Scale 1-3) Enoxaparin Sodium (Enoxaparin Sodium 40 Mg/0.4 Ml Syringe) 40 mg SUBCUT Q24H [facility] Last Admin: 11/30/22 08:17 Dose: 40 mg Documented By: DONYA Melatonin (Melatonin 3 Mg Tablet) 6 mg PO BEDTIME PRN PRN Reason: Insomnia Ondansetron HCl (Ondansetron Hcl 4 Mg/2 Ml Vial) 4 mg IVPUSH Q8H PRN PRN Reason: Nausea and Vomiting Pharmacy Consult (Consult Rx Perform Med Rec) 1 each MISCELLANE ONCE PRN PRN Reason: Consult order Sodium Chloride (0.9 % Sodium Chloride Flush 3 Ml Syringe) 3 [facility] Last Admin: 11/30/22 07:26 Dose: 3 ml Documented By: DONYA Labs 11/30/22 05:46 11/30/22 05:46 Labs: Laboratory Results - last 24 hr 11/29/22 11/29/22 11/29/22 18:01 18:01 19:21 MCV 85.1 MCH 28.3 MCHC 33.2 RDW 17.0 H Plt Count 207 D MPV 8.7 L Immature Gran % (Auto) 0.8 H Neut % (Auto) 71.6 Lymph % (Auto) 12.3 L [place] % (Auto) 12.8 H Eos % (Auto) 2.1 Baso % (Auto) 0.4 Lymph # (Auto) 0.6 L [place] # (Auto) 0.6 Eos # (Auto) 0.1 Baso # (Auto) 0.0 Abs Immat Gran (auto) 0.04 H Absolute Neuts (auto) 3.5 Absolute Nucleated RBC 0.000 Nucleated RBC % (auto) 0.0 Anion Gap 14 Estim Creat Clear Calc 69.3 Estimated GFR > 60 Random Glucose 97 Osmolality Lactic Acid 1.0 Calcium 9.2 D Total Bilirubin 0.6 AST 14 ALT 5 Alkaline Phosphatase 78 Total Protein 7.6 Albumin 3.1 L TSH 2.20 Random Cortisol Urine Color Urine Appearance Urine pH Ur Specific [place] Urine Protein Urine Glucose (UA) Urine Ketones Urine Blood Urine Nitrite Ur Leukocyte Esterase Urine RBC Urine WBC Ur Squamous Epith Cells Urine Bacteria Hyaline Casts Urine Osmolality Ur Random Sodium Influenza Type A (PCR) Influenza Type B (PCR) RSV RNA Qual (PCR) SARS-CoV-2 RNA (RT-PCR) 11/29/22 11/29/22 11/29/22 20:05 21:42 21:42 MCV MCH MCHC RDW Plt Count MPV Immature Gran % (Auto) Neut % (Auto) Lymph % (Auto) [place] % (Auto) Eos % (Auto) Baso % (Auto) Lymph # (Auto) [place] # (Auto) Eos # (Auto) Baso # (Auto) Abs Immat Gran (auto) Absolute Neuts (auto) Absolute Nucleated RBC Nucleated RBC % (auto) Anion Gap Estim Creat Clear Calc Estimated GFR Random Glucose Osmolality 264 L Lactic Acid Calcium Total Bilirubin AST ALT Alkaline Phosphatase Total Protein Albumin TSH Random Cortisol Urine Color Yellow Urine Appearance Cloudy Urine pH 8.0 Ur Specific [place] 1.015 Urine Protein Trace Urine Glucose (UA) Negative Urine Ketones Negative Urine Blood Negative Urine Nitrite Negative Ur Leukocyte Esterase Small (1+) H Urine RBC 0-2 Urine WBC 6-10 H Ur Squamous Epith Cells 0-2 Urine Bacteria None Seen Hyaline Casts 0-2 Urine Osmolality Ur Random Sodium Influenza Type A (PCR) NEGATIVE Influenza Type B (PCR) NEGATIVE RSV RNA Qual (PCR) NEGATIVE SARS-CoV-2 RNA (RT-PCR) NEGATIVE 11/29/22 11/29/22 11/30/22 21:42 21:42 05:46 MCV 84.1 MCH 27.7 MCHC 32.9 RDW 17.0 H Plt Count 214 MPV 9.3 L Immature Gran % (Auto) 0.6 H Neut % (Auto) 73.9 H Lymph % (Auto) 10.8 L [place] % (Auto) 13.3 H Eos % (Auto) 0.8 Baso % (Auto) 0.6 Lymph # (Auto) 0.7 L [place] # (Auto) 0.9 Eos # (Auto) 0.1 Baso # (Auto) 0.0 Abs Immat Gran (auto) 0.04 H Absolute Neuts (auto) 4.7 Absolute Nucleated RBC 0.000 Nucleated RBC % (auto) 0.0 Anion Gap Estim Creat Clear Calc Estimated GFR Random Glucose Osmolality Lactic Acid Calcium Total Bilirubin AST ALT Alkaline Phosphatase Total Protein Albumin TSH Random Cortisol Urine Color Urine Appearance Urine pH Ur Specific [place] Urine Protein Urine Glucose (UA) Urine Ketones Urine Blood Urine Nitrite Ur Leukocyte Esterase Urine RBC Urine WBC Ur Squamous Epith Cells Urine Bacteria Hyaline Casts Urine Osmolality 448 Ur Random Sodium 96.0 Influenza Type A (PCR) Influenza Type B (PCR) RSV RNA Qual (PCR) SARS-CoV-2 RNA (RT-PCR) 11/30/22 11/30/22 05:46 05:46 MCV MCH MCHC RDW Plt Count MPV Immature Gran % (Auto) Neut % (Auto) Lymph % (Auto) [place] % (Auto) Eos % (Auto) Baso % (Auto) Lymph # (Auto) [place] # (Auto) Eos # (Auto) Baso # (Auto) Abs Immat Gran (auto) Absolute Neuts (auto) Absolute Nucleated RBC Nucleated RBC % (auto) Anion Gap 12 Estim Creat Clear Calc 79.2 Estimated GFR > 60 Random Glucose 91 Osmolality Lactic Acid Calcium 8.5 D Total Bilirubin AST ALT Alkaline Phosphatase Total Protein Albumin TSH Random Cortisol 13.5 Urine Color Urine Appearance Urine pH Ur Specific [place] Urine Protein Urine Glucose (UA) Urine Ketones Urine Blood Urine Nitrite Ur Leukocyte Esterase Urine RBC Urine WBC Ur Squamous Epith Cells Urine Bacteria Hyaline Casts Urine Osmolality Ur Random Sodium Influenza Type A (PCR) Influenza Type B (PCR) RSV RNA Qual (PCR) SARS-CoV-2 RNA (RT-PCR) Assessment and Plan (1) SIADH (syndrome of inappropriate ADH production): Status: Acute Plan 77-year-old male with pertinent history of essential hypertension, bladder and prostate cancer was brought to the emergency department for evaluation of generalized weakness. Hypotonic hyponatremia.? slowly improving Unclear baseline and chronicity. Urine studies suggestive of SIADH.? TSH and morning cortisol normal 1liter fluid restriction.? nephro consult Essential hypertension atenolol History of prostate cancer enzalutamide Normocytic anemia stable DVT prophylaxis:? Lovenox Full code.? attending Dr. Shankar Time Spent With Patient Time: Total time managing care of this patient today ____ minutes. Quality Stroke Does the patient have a stroke diagnosis?: No VTE Prior VTE?: No VTE Risk Level:: Medical - moderate - high VTE Device Contraindication: Treatment Not Indicated VTE Drug Contraindication: N/A - Med Ordered
--- NOTE | 2022-11-30 11:28 | P.CONNP_ITS ---
History of Present Illness Reason for Consult Consult date: 12/01/22 Reason for consult: Hyponatremia Chief Complaint Chief complaint: Weakness History of Present Illness Narrative: 77-year-old male with pertinent history of essential hypertension, bladder and prostate cancer, dementia was brought to the emergency department for evaluation of generalized weakness.? Patient has dementia and is a poor historian.? Unable to obtain history from the patient.? Upon admission was found to have low sodium levels in interest consultation Review of Systems Review of Systems Unable to obtain a detailed review of system due PMFSH Past Medical History Medical History Bladder cancer Dementia Essential hypertension Hyponatremia Social History Social History Household Members: Spouse Housing: House Do you presently have visiting nurse or other home services: Yes Patient Tobacco Use Status: Former Tobacco user Tobacco use type: Cigarette Patient Interested in Nicotine Replacement: Yes Use of substances other than those prescribed or required for medical reasons: No Currently Displaying Signs/Symptoms of Drug Intoxication Withdrawal: No Have you been hit, kicked, punched, or otherwise hurt by someone within the past year? If so, by whom?: No Do you feel safe in your current relationship?: Yes Is there a partner from a previous relationship who is making you feel unsafe now?: No Are you made to feel afraid or neglected: No Advance Directives: Yes Advance Directives Information Provided: No Advance Directives on File: No Advance Directives Date on File: 11/30/22 Do you have thoughts of harming others: None Do you have a plan to hurt others: No Plan Recently lost weight without trying: Unsure Nutrition Risks: No Nutritional Risk Poor oral hygiene: Yes service: Yes Meds Allergies Allergy/AdvReac Type Severity Reaction Status Date / Time No Known Allergies Allergy Unverified 02/22/20 14:41 Active Medications: Current Medications Acetaminophen (Acetaminophen 325 Mg Tablet) 650 mg PO Q6H PRN PRN Reason: Pain, Mild (Pain Scale 1-3) Atenolol (Atenolol 25 Mg Tablet) 25 mg PO DAILY [facility]; Protocol Brimonidine Tartrate (Brimonidine Tartrate 0.2% Oph 5 Ml Bottle) 1 drop EYE- LEFT BID [facility] Cyanocobalamin (Cyanocobalamin (Vitamin B-12) 1,000 Mcg Tablet) 2,000 mcg PO DAILY [facility] Enoxaparin Sodium (Enoxaparin Sodium 40 Mg/0.4 Ml Syringe) 40 mg SUBCUT Q24H [facility] Last Admin: 11/30/22 08:17 Dose: 40 mg Melatonin (Melatonin 3 Mg Tablet) 6 mg PO BEDTIME PRN PRN Reason: Insomnia Non-Formulary Medication (Enzalutamide [Xtandi]) 2 tab PO DAILY [facility] Ondansetron HCl (Ondansetron Hcl 4 Mg/2 Ml Vial) 4 mg IVPUSH Q8H PRN PRN Reason: Nausea and Vomiting Pharmacy Consult (Consult Rx Perform Med Rec) 1 each MISCELLANE ONCE PRN PRN Reason: Consult order Sodium Chloride (0.9 % Sodium Chloride Flush 3 Ml Syringe) 3 ml IVFLUSH QSHIFT [facility] Last Admin: 11/30/22 07:26 Dose: 3 ml Home Medications Medication Instructions Recorded Confirmed Last Taken Type enzalutamide 80 mg tablet (Xtandi) 2 tab PO DAILY 07/11/22 11/29/22 Unknown History atenolol 25 mg tablet 25 mg PO DAILY 11/29/22 11/29/22 Unknown History cyanocobalamin (vitamin B-12) 2,000 mcg PO DAILY 11/29/22 11/29/22 Unknown History 1,000 mcg tablet brimonidine 0.2 % eye drops 1 drp ophthalmic-Left BID 11/30/22 11/30/22 Unknown History Physical Exam Vital Signs: Last Vital Signs Temp 97.6 F 11/30/22 09:55 Pulse 63 11/30/22 09:55 Resp 20 11/30/22 09:55 BP 144/67 H 11/30/22 09:55 Pulse Ox 95 11/30/22 09:55 O2 Del Method Room Air 11/30/22 09:55 BMI result Body Mass Index 18.1 Comfortable Neck is supple Lung: Air entry equal Heart: S1,S2, normal. No rub Abd: Soft. BS + NS : Alert.No asterexis Ext: No edema Results Lab Results 11/30/22 05:46 11/30/22 05:46 Lab results: Chemistry 11/29/22 11/30/22 18:01 05:46 Sodium 124 L 125 L Potassium 4.6 4.3 Carbon Dioxide 23 21 L BUN 11 9 Creatinine 0.72 0.63 Calcium 9.2 D 8.5 D Hematology 11/29/22 11/30/22 18:01 05:46 WBC 4.9 6.4 Hgb 8.9 L 8.2 L Plt Count 207 D 214 Urinalysis 11/29/22 21:42 Urine Color Yellow Urine Appearance Cloudy Urine pH 8.0 Ur Specific [place] 1.015 Urine Protein Trace Urine Glucose (UA) Negative Urine Ketones Negative Urine Blood Negative Urine Nitrite Negative Ur Leukocyte Esterase Small (1+) H Urine RBC 0-2 Urine WBC 6-10 H Ur Squamous Epith Cells 0-2 Hyaline Casts 0-2 Urine Studies 11/29/22 21:42 Urine Osmolality 448 Assessment and Plan (1) Hyponatremia: Status: Acute Plan 77-year-old man with hypotonic hyponatremia. Clinically appears euvolemic. Serum cortisol is normal. TSH is normal. Urine osmolality is inappropriately elevated and serum osmolality is 276. Rick Stark has impaired free water excretion. The chest x-ray seems unremarkable. He would a CT scan of the head back in July which was also unremarkable. Recommendation Restrict oral free water intake to 1 L per 24 hours. Add urea powder 30 g p.o. twice a day. Goal is to correct serum sodium rate of 0.5-1 millimole per L/hr and not exceed more than 8-10 millimoles in 24 hour. Check serum sodium every 4-6 hours to avoid rapid correction. We will follow along with the team. Thank you Time Spent With Patient Time: Total time managing care of this patient today ____ minutes. Procedures Date of Service Date of Service: 12/01/22
[2022-11-30] MEDS: Urea 15 GM POWDER 30 GM PO ×2 (13:31→20:18)
[2022-11-30 14:30] LABS: Sodium 124 mmol/L (135-145)
--- NOTE | 2022-11-30 14:42 | MHC.CM.PN ---
Patient has been switched from OBSERVATION to INPATIENT. IMM addressed with /HCP/Marisa @ [phone]. Original IMM will be mailed certified letter to Marisa and a copy has been placed on the chart..
[2022-11-30] MEDS: Brimonidine Tartrate 0.2% Oph 5 ML BOTTLE 1 DROP EYE-LEFT (20:18)
[2022-11-30 20:35] LABS: Sodium 123 mmol/L (135-145)
[2022-11-30 20:41] LABS: Anion Gap 10 (12-20); Blood Urea Nitrogen 14 mg/dL (9-16); Calcium 8.2 mg/dL (8.4-10.2); Carbon Dioxide 23 mmol/L (22-29); Chloride 94 mmol/L (96-108); Creatinine Clr Calc Pharmacy 74.4; Estimated Glomerular Filt Rate > 60; Glucose Random 122 mg/dL (60-115); Magnesium 1.6 mg/dL (1.6-2.6); Potassium 4.2 mmol/L (3.3-5.1); Sodium 123 mmol/L (135-145)
--- NOTE | 2022-11-30 21:05 | PC.NURSE ---
Pt had runs of Vtach, denies having any chest pain, asymptomatic, vital sign stable. MD notified, new order received to obtain STAT BMP, Trops, EKG and Mag level.
[2022-11-30 21:39] LABS: Troponin-I High Sensitivity 12.2 ng/L (<3.5-35.0)
[2022-12-01] VITALS (8 sets, daily range): BP systolic 78–134; BP diastolic 46–64; PULSE 60–70; RESP 16–20; TEMP 36.4–36.8; O2SAT 95–99
[2022-12-01 03:05] LABS: Sodium 126 mmol/L (135-145)
[2022-12-01] MEDS: Urea 15 GM POWDER 30 GM PO ×2 (09:02→20:06)
[2022-12-01] MEDS: Cyanocobalamin (Vitamin B-12) 1,000 MCG TABLET 2000 MCG PO (09:06)
[2022-12-01] MEDS: 0.9 % Sodium Chloride Flush 3 ML SYRINGE IVFLUSH ×2 (09:06→23:27)
[2022-12-01] MEDS: atenoloL 25 MG TABLET PO (09:06)
[2022-12-01] MEDS: Brimonidine Tartrate 0.2% Oph 5 ML BOTTLE 1 DROP EYE-LEFT ×2 (09:06→20:06)
[2022-12-01] MEDS: Enoxaparin Sodium 40 MG/0.4 ML SYRINGE SUBCUT (09:06)
[2022-12-01 09:42] LABS: Anion Gap 11 (12-20); Blood Urea Nitrogen 30 mg/dL (9-16); Calcium 8.6 mg/dL (8.4-10.2); Carbon Dioxide 24 mmol/L (22-29); Chloride 97 mmol/L (96-108); Creatinine Clr Calc Pharmacy 81.4; Estimated Glomerular Filt Rate > 60; Glucose Random 83 mg/dL (60-115); Potassium 4.4 mmol/L (3.3-5.1); Sodium 128 mmol/L (135-145)
--- NOTE | 2022-12-01 09:59 | PM.PNNEP ---
Subjective Subjective Date of Service: 12/02/22 Interval history: Events noted. Physical Exam Vital Signs: Vital Signs: Last Vital Signs Temp 97.6 F 12/01/22 07:39 Pulse 61 12/01/22 07:39 Resp 16 12/01/22 07:39 BP 126/61 12/01/22 07:39 Pulse Ox 99 12/01/22 07:39 O2 Del Method Room Air 12/01/22 07:39 BMI result Body Mass Index 18.9 Comfortable Neck is supple Lung: Air entry equal Heart: S1,S2, normal. No rub Abd: Soft. BS + NS : Alert.No asterexis Ext: No edema Objective Data Labs 11/30/22 05:46 12/01/22 08:29 Labs: Laboratory Results - last 24 hr 11/30/22 11/30/22 11/30/22 14:15 20:16 20:16 Sodium 124 L 123 L 123 L Potassium 4.2 Chloride 94 L Carbon Dioxide 23 Anion Gap 10 L BUN 14 Creatinine 0.70 Estim Creat Clear Calc 74.4 Estimated GFR > 60 Random Glucose 122 H Calcium 8.2 L Magnesium 1.6 Troponin I High Sens 11/30/22 12/01/22 12/01/22 21:16 02:50 08:29 Sodium 126 L 128 L Potassium 4.4 Chloride 97 Carbon Dioxide 24 Anion Gap 11 L BUN 30 H Creatinine 0.64 Estim Creat Clear Calc 81.4 Estimated GFR > 60 Random Glucose 83 Calcium 8.6 Magnesium Troponin I High Sens 12.2 Microbiology Microbiology Results: Microbiology 11/29/22 20:03 Blood - Venous Blood Culture - Preliminary No growth after 24 hours. 11/29/22 19:23 Blood - Venous Blood Culture - Preliminary No growth after 24 hours. 11/29/22 22:25 Urine clean catch - Urine muñoz top Urine Culture - Preliminary Culture in progress. Procedures Date of Service Date of Service: 12/02/22 Assessment & Plan Assessment and plan (1) Hyponatremia: Status: Acute Plan 77-year-old man with hypotonic hyponatremia. Clinically appears euvolemic. Serum cortisol is normal. TSH is normal. Urine osmolality is inappropriately elevated and serum osmolality is 276. Rick Stark has impaired free water excretion. The chest x-ray seems unremarkable. He would a CT scan of the head back in July which was also unremarkable. Recommendation Restrict oral free water intake to 1 L per 24 hours. Add urea powder 30 g p.o. twice a day. Goal is to correct serum sodium rate of 0.5-1 millimole per L/hr and not exceed more than 8-10 millimoles in 24 hour. We will follow along with the team. Thank you Time Spent With Patient Time: Total time managing care of this patient today ____ minutes. Progress Note: Quality Stroke Does the patient have a stroke diagnosis?: No
--- NOTE | 2022-12-01 11:01 | HO.PM.IMPN ---
Subjective Subjective Date of Service: 12/01/22 Review of Systems follow up hyponatremia no pain, eating Physical Exam Vital Signs: Vital Signs: Last Vital Signs Temp 97.6 F 12/01/22 07:39 Pulse 61 12/01/22 07:39 Resp 16 12/01/22 07:39 BP 126/61 12/01/22 07:39 Pulse Ox 99 12/01/22 07:39 O2 Del Method Room Air 12/01/22 07:39 BMI result Body Mass Index 18.9 Appearing in no acute distress lung sounds are clear to auscultation heart regular rate rhythm, clear S1, S2 positive bowel sounds, abdomen is soft, nontender neuro patient is alert x3, no focal deficits Objective Data Active Medications Acetaminophen (Acetaminophen 325 Mg Tablet) 650 mg PO Q6H PRN PRN Reason: Pain, Mild (Pain Scale 1-3) Atenolol (Atenolol 25 Mg Tablet) 25 mg PO DAILY [facility]; Protocol Last Admin: 12/01/22 09:06 Dose: 25 mg Documented By: ASHLIE Brimonidine Tartrate (Brimonidine Tartrate 0.2% Oph 5 Ml Bottle) 1 drop EYE-LEFT BID [facility] Last Admin: 12/01/22 09:06 Dose: 1 drop Documented By: ASHLIE Cyanocobalamin (Cyanocobalamin (Vitamin B-12) 1,000 Mcg Tablet) 2,000 mcg PO DAILY [facility] Last Admin: 12/01/22 09:06 Dose: 2,000 mcg Documented By: ASHLIE Enoxaparin Sodium (Enoxaparin Sodium 40 Mg/0.4 Ml Syringe) 40 mg SUBCUT Q24H [facility] Last Admin: 12/01/22 09:06 Dose: 40 mg Documented By: ASHLIE Melatonin (Melatonin 3 Mg Tablet) 6 mg PO BEDTIME PRN PRN Reason: Insomnia Non-Formulary Medication (Enzalutamide [Xtandi]) 2 tab PO DAILY [facility] Ondansetron HCl (Ondansetron Hcl 4 Mg/2 Ml Vial) 4 mg IVPUSH Q8H PRN PRN Reason: Nausea and Vomiting Pharmacy Consult (Consult Rx Perform Med Rec) 1 each MISCELLANE ONCE PRN PRN Reason: Consult order Sodium Chloride (0.9 % Sodium Chloride Flush 3 Ml Syringe) 3 ml IVFLUSH QSHIFT [facility] Last Admin: 12/01/22 09:06 Dose: 3 ml Documented By: ASHLIE Urea (Urea 15 Gm Powder) 30 gm PO BID [facility] Last Admin: 12/01/22 09:02 Dose: 30 gm Documented By: ASHLIE Labs 11/30/22 05:46 12/01/22 08:29 Labs: Laboratory Results - last 24 hr 11/30/22 11/30/22 12/01/22 20:16 21:16 08:29 Anion Gap 10 L 11 L Estim Creat Clear Calc 74.4 81.4 Estimated GFR > 60 > 60 Random Glucose 122 H 83 Calcium 8.2 L 8.6 Magnesium 1.6 Troponin I High Sens 12.2 Microbiology Microbiology Results: Microbiology 11/29/22 22:25 Urine Culture - Preliminary Urine clean catch - Urine muñoz top Gram negative wendy 11/29/22 20:03 Blood Culture - Preliminary Blood - Venous No growth after 24 hours. 11/29/22 19:23 Blood Culture - Preliminary Blood - Venous No growth after 24 hours. Assessment and Plan (1) SIADH (syndrome of inappropriate ADH production): Status: Acute Plan 77-year-old male with pertinent history of essential hypertension, bladder and prostate cancer was brought to the emergency department for evaluation of generalized weakness. Hypotonic hyponatremia.? slowly improving Unclear baseline and chronicity. Urine studies suggestive of SIADH.? TSH and morning cortisol normal 1liter fluid restriction.? nephro following, once na at 130 can consider dc PT consult Essential hypertension atenolol History of prostate cancer enzalutamide Normocytic anemia stable DISPO PT consult pending. Lives at home with DVT prophylaxis:? Lovenox Full code.? attending Dr. Shankar Time Spent With Patient Time: Total time managing care of this patient today ____ minutes. Quality Stroke Does the patient have a stroke diagnosis?: No VTE Prior VTE?: No VTE Risk Level:: Medical - moderate - high VTE Device Contraindication: Treatment Not Indicated VTE Drug Contraindication: N/A - Med Ordered
[2022-12-01] MEDS: 0.9 % Sodium Chloride 500 ML 250 ML IVCONT (11:26)
--- NOTE | 2022-12-01 12:41 | P.CDIM_ITS ---
PROVIDER RESPONSE TEXT: To clarify, the appropriate diagnosis supported by the clinical indicators: Other (explain): Moderate protein calorie malnutrition QUERY TEXT: PHYSICIAN'S DOCUMENTATION REQUEST Date of Query: 12/01/2022 09:52 AM EDT Patient Name: Rick Aparicio Admit Date: 11/30/2022 Dear Leslie Saleh, A review of the medical record indicates additional documentation may be needed. Please review below and update the documentation accordingly. Clinical Indicators: Clinical nutrition notes: BMI 18 5ft 11in 61.5kg Underweight, involuntary weight loss , 24% x 4 months, patient underweight for HT. If possible, please provide an associated diagnosis related to the abnormal BMI, such as: Underweight Weight loss Cachexia Anorexia BMI is not significant Other (explain)Clinically unable to determine (explain)Thank you, Isabelle Ramirez, CCS, CDIS Use of terms such as suspected, likely, concern for, or probable (associated with a specific diagnosi s that is being evaluated, monitored, or treated as if it exists) are acceptable and can be coded in the inpatient se tting, when documented at the time of discharge. Please use your independent medical judgment in providing your response. THIS QUERY IS PART OF THE PERMANENT MEDICAL RECORD
[2022-12-02] VITALS (7 sets, daily range): BP systolic 98–140; BP diastolic 50–66; PULSE 58–84; RESP 16–20; TEMP 36.3–36.9; O2SAT 94–99
--- NOTE | 2022-12-02 | ECG_ITS ---
Test Reason : vtach Blood Pressure : / mmHG Vent. Rate : 059 BPM Atrial Rate : 059 BPM P-R Int : 154 ms QRS Dur : 104 ms QT Int : 460 ms P-R-T Axes : 079 001 062 degrees QTc Int : 455 ms Poor data quality, interpretation may be adversely affected Sinus bradycardia Nonspecific ST and T wave abnormality Abnormal ECG When compared with ECG of 30-NOV-2022 20:50, Premature atrial complexes are no longer Present Referred By: Juan Shetty Electronically Signed By:Emile Hager
[2022-12-02 07:01] LABS: Magnesium 1.8 mg/dL (1.6-2.6)
[2022-12-02 07:03] LABS: Anion Gap 11 (12-20); Blood Urea Nitrogen 49 mg/dL (9-16); Calcium 8.8 mg/dL (8.4-10.2); Carbon Dioxide 23 mmol/L (22-29); Chloride 99 mmol/L (96-108); Creatinine Clr Calc Pharmacy 81.4; Estimated Glomerular Filt Rate > 60; Glucose Random 91 mg/dL (60-115); Sodium 129 mmol/L (135-145)
[2022-12-02] MEDS: Enoxaparin Sodium 40 MG/0.4 ML SYRINGE SUBCUT (09:11)
[2022-12-02] MEDS: Magnesium Sulfate/H2O 2 GM/50 ML PIGGYBACK IV (09:12)
[2022-12-02] MEDS: Urea 15 GM POWDER 30 GM PO ×2 (09:12→21:25)
[2022-12-02] MEDS: Cyanocobalamin (Vitamin B-12) 1,000 MCG TABLET 2000 MCG PO (09:12)
[2022-12-02] MEDS: 0.9 % Sodium Chloride Flush 3 ML SYRINGE IVFLUSH ×3 (09:12→21:59)
[2022-12-02] MEDS: Brimonidine Tartrate 0.2% Oph 5 ML BOTTLE 1 DROP EYE-LEFT ×2 (09:28→21:26)
--- NOTE | 2022-12-02 09:41 | HO.PM.IMPN ---
Subjective Subjective Date of Service: 12/02/22 Interval History: f/u on hyponatremia Na level is stable Physical Exam Vital Signs: Vital Signs: Last Vital Signs Temp 98.4 F 12/02/22 07:10 Pulse 58 12/02/22 07:10 Resp 16 12/02/22 07:10 BP 140/66 H 12/02/22 07:10 Pulse Ox 98 12/02/22 07:10 O2 Del Method Room Air 12/02/22 07:10 BMI result Body Mass Index 18.9 Const: Other: General: AO X 3, no acute distress, frail Resp: CTA bilateral CVS: S1,S2,RRR GI: +BS, NT, no distention Skin: No rash Neuro: motor grossly intact Psych: appropriate affect Objective Data Active Medications Acetaminophen (Acetaminophen 325 Mg Tablet) 650 mg PO Q6H PRN PRN Reason: Pain, Mild (Pain Scale 1-3) Atenolol (Atenolol 25 Mg Tablet) 25 mg PO DAILY [facility]; Protocol Last Admin: 12/01/22 09:06 Dose: 25 mg Documented By: ASHLIE Brimonidine Tartrate (Brimonidine Tartrate 0.2% Oph 5 Ml Bottle) 1 drop EYE-LEFT BID [facility] Last Admin: 12/02/22 09:28 Dose: 1 drop Documented By: SHAWN Cyanocobalamin (Cyanocobalamin (Vitamin B-12) 1,000 Mcg Tablet) 2,000 mcg PO DAILY [facility] Last Admin: 12/02/22 09:12 Dose: 2,000 mcg Documented By: SHAWN Enoxaparin Sodium (Enoxaparin Sodium 40 Mg/0.4 Ml Syringe) 40 mg SUBCUT Q24H [facility] Last Admin: 12/02/22 09:11 Dose: 40 mg Documented By: SHAWN Melatonin (Melatonin 3 Mg Tablet) 6 mg PO BEDTIME PRN PRN Reason: Insomnia Non-Formulary Medication (Enzalutamide [Xtandi]) 2 tab PO DAILY [facility] Ondansetron HCl (Ondansetron Hcl 4 Mg/2 Ml Vial) 4 mg IVPUSH Q8H PRN PRN Reason: Nausea and Vomiting Pharmacy Consult (Consult Rx Perform Med Rec) 1 each MISCELLANE ONCE PRN PRN Reason: Consult order Sodium Chloride (0.9 % Sodium Chloride Flush 3 Ml Syringe) 3 ml IVFLUSH QSHIFT [facility] Last Admin: 12/02/22 09:12 Dose: 3 ml Documented By: SHAWN Urea (Urea 15 Gm Powder) 30 gm PO BID [facility] Last Admin: 12/02/22 09:12 Dose: 30 gm Documented By: SHAWN Labs 11/30/22 05:46 12/02/22 06:15 Labs: Laboratory Results - last 24 hr 12/01/22 12/02/22 12/02/22 08:29 06:15 06:15 Anion Gap 11 L 11 L Estim Creat Clear Calc 81.4 81.4 Estimated GFR > 60 > 60 Random Glucose 83 91 Calcium 8.6 8.8 Magnesium 1.8 Microbiology Microbiology Results: Microbiology 11/29/22 22:25 Urine Culture - Final Urine clean catch - Urine muñoz top Pseudomonas aeruginosa 11/29/22 20:03 Blood Culture - Preliminary Blood - Venous No growth after 48 hours. 11/29/22 19:23 Blood Culture - Preliminary Blood - Venous No growth after 48 hours. Assessment and Plan (1) SIADH (syndrome of inappropriate ADH production): Status: Acute Plan 77-year-old male with pertinent history of essential hypertension, chronic hyponatremia, bladder and prostate cancer was brought to the emergency department for evaluation of generalized weakness and found to have hyponatremia Hypotonic hyponatremia d/t SIADH Na 123 to now 129 which is around his baseline. continue fluid restriction Essential hypertension atenolol History of prostate cancer enzalutamide Mild protein calory malnutrition--ensure Normocytic anemia stable DISPO PT recommends STR, can go today if bed available DVT prophylaxis:? Lovenox Need for inpatient: Tx of symptomatic hyponatremia with close and frequent monitoring of electrolytes Time Spent With Patient Time: Total time managing care of this patient today ____ minutes. Quality Stroke Does the patient have a stroke diagnosis?: No VTE Prior VTE?: No VTE Risk Level:: Medical - moderate - high VTE Device Contraindication: Treatment Not Indicated VTE Drug Contraindication: N/A - Med Ordered
--- NOTE | 2022-12-02 10:31 | PM.PNNEP ---
Subjective Subjective Date of Service: 12/03/22 Interval history: f/u on hyponatremia Na level is improving Physical Exam Vital Signs: Vital Signs: Last Vital Signs Temp 98.4 F 12/02/22 07:10 Pulse 58 12/02/22 07:10 Resp 16 12/02/22 07:10 BP 140/66 H 12/02/22 07:10 Pulse Ox 98 12/02/22 07:10 O2 Del Method Room Air 12/02/22 07:10 BMI result Body Mass Index 18.9 Const: Other: General: AO X 3, no acute distress, frail Resp: CTA bilateral CVS: S1,S2,RRR GI: +BS, NT, no distention Skin: No rash Neuro: motor grossly intact Psych: appropriate affect Objective Data Labs 11/30/22 05:46 12/02/22 06:15 Labs: Laboratory Results - last 24 hr 12/02/22 12/02/22 06:15 06:15 Sodium 129 L Potassium 4.0 Chloride 99 Carbon Dioxide 23 Anion Gap 11 L BUN 49 H Creatinine 0.64 Estim Creat Clear Calc 81.4 Estimated GFR > 60 Random Glucose 91 Calcium 8.8 Magnesium 1.8 Microbiology Microbiology Results: Microbiology 11/29/22 22:25 Urine clean catch - Urine muñoz top Urine Culture - Final Pseudomonas aeruginosa 11/29/22 20:03 Blood - Venous Blood Culture - Preliminary No growth after 48 hours. 11/29/22 19:23 Blood - Venous Blood Culture - Preliminary No growth after 48 hours. Procedures Date of Service Date of Service: 12/03/22 Assessment & Plan Assessment and plan (1) Hyponatremia: Status: Acute Plan 77-year-old man with hypotonic hyponatremia. Clinically appears euvolemic. Serum cortisol is normal. TSH is normal. Urine osmolality is inappropriately elevated and serum osmolality is 276. Rick Stark has impaired free water excretion. The chest x-ray seems unremarkable. He would a CT scan of the head back in July which was also unremarkable. Recommendation Restrict oral free water intake to 1 L per 24 hours. urea powder 30 g p.o. twice a day. For 2 more days Goal is to correct serum sodium rate of 0.5-1 millimole per L/hr and not exceed more than 8-10 millimoles in 24 hour. We will follow along with the team. Thank you Time Spent With Patient Time: Total time managing care of this patient today ____ minutes. Progress Note: Quality Stroke Does the patient have a stroke diagnosis?: No
--- NOTE | 2022-12-02 10:38 | MHC.CM.PN ---
Patient's first choice SNF/[facility] will have a bed available for Patient tomorrow. CM will follow.
--- NOTE | 2022-12-02 11:59 | MHC.CLN ---
F/U PT IS MODERATELY MALNOURISHED PREVIOUS WT HX REVEALS 77.1KG (07/11/22) TRIGGERS FOR 24% SIGNIFICANT WT LOSS X 4 MONTHS PO 100% X 3 MEAL DIET RX: CARDIAC 1000ML FR-APPROPRIATE PT RECEIVING MAGIC CUP TID TO INCREASE KCALS SUPP PROVIDES 870KCALS, 27G PROTEIN WILL ADD ENSURE WHEN FLUID RESTRICTION LIFTED MONITOR PO INTAKE CLOSELY
[2022-12-03 04:00] VITALS: BP 134/64; PULSE 79; RESP 20; TEMP 37; O2SAT 95
[2022-12-03 07:54] VITALS: BP 114/55; PULSE 71; RESP 18; TEMP 36.1; O2SAT 93
--- NOTE | 2022-12-03 08:34 | MHC.CM.PN ---
Per MD, Patient is medically cleared for dc to SNF/[facility] today. Patient will dc to first choice SNF/[facility] today at 11 AM. CM spoke with /Primary HCP/Marisa at [phone] and addressed IMM with her (Patient has Dementia. Original IMM will be mailed certified letter to Marisa and a copy has been placed on the chart). Marisa is aware of and pleased with the dc plan.
[2022-12-03] MEDS: Enoxaparin Sodium 40 MG/0.4 ML SYRINGE SUBCUT (08:59)
[2022-12-03] MEDS: Urea 15 GM POWDER 30 GM PO (08:59)
[2022-12-03] MEDS: Cyanocobalamin (Vitamin B-12) 1,000 MCG TABLET 2000 MCG PO (08:59)
[2022-12-03] MEDS: 0.9 % Sodium Chloride Flush 3 ML SYRINGE IVFLUSH (08:59)
[2022-12-03] MEDS: Brimonidine Tartrate 0.2% Oph 5 ML BOTTLE 1 DROP EYE-LEFT (09:02)
--- NOTE | 2022-12-03 09:15 | PM.DS ---
DS: Providers Provider Date of Service: 12/03/22 Date of admission: 11/30/22 12:20 Primary care physician: Carmelina Middleton MD Consults: 11/30/22 09:54 Consult to Nephrology Routine Consulting Provider: Harrison Rocha Reason for consultation: hyponatremia DS: Diagnosis Discharge Diagnosis (1) Hyponatremia: Status: Acute DS: Summary Hospital Course Hospital Course: Chief Complaint: Weakness This is a 77-year-old male with pertinent history of essential hypertension, bladder and prostate cancer, dementia was brought to the emergency department for evaluation of generalized weakness.? Patient has dementia and is a poor historian.? Unable to obtain history from the patient.? History obtained from ER provider and family at bedside.? As per the son, patient states he got a call that the patient was weak.? He went to evaluate the patient and found that he was weaker than usual.? No specific complaints.? The family thinks that the patient has been overall weaker than usual.? No fever, chills, cough, chest discomfort, abdominal pain, changes in urinary or bowel habits.? Patient was recently treated with p.o. antibiotics for UTI.? Unable to obtain review of systems In the emergency department, sodium was found to be 124 Hospital course: This patient has underlying SIADH and chronic hyponatremia with baseline around 130 and presented on this ocasion with weakness and lab work showed profound hyponatermia of sodium of 123. This has been managed with water restriction and Urea powder 30 gram bid under the direction of nephrology and gradually sodium level has risen to now 129 as of 12/02 and symptoms of weakness signficantly improved. He will continue urea powder for 2 more days and to adhere to no more than 1500 cc of water a day.. He has been evaluated PT and is recommended to go to short term rehab and so arrangment has been made for him to go to short term rehab for less than 30 days. Essential hypertension--to continue atenolol History of prostate cancer continue enzalutamide Mild protein calory malnutrition--ensure bid Normocytic anemia of chronic disease stable Dispo: To short term rehab for less than 30 days Time Spent with Patient Time attestation: Total time managing care of this patient today ____ minutes. Discharge coordination time: Greater than 30 minutes Quality: Safe Use of Opioids Does Pt have an Active Cancer Diagnosis on the Problem List?: No Quality: Stroke Does the patient have a stroke diagnosis?: No Physical Exam Vital Signs: Vital Signs: Last Vital Signs Temp 97.0 F 12/03/22 07:54 Pulse 71 12/03/22 07:54 Resp 18 12/03/22 07:54 BP 114/55 L 12/03/22 07:54 Pulse Ox 93 12/03/22 07:54 O2 Del Method Room Air 12/03/22 07:54 BMI result Body Mass Index 18.9 DS: Data Data Completed and Pending Labs on day of discharge: Preliminary micro results at discharge 11/29/22 20:03 Blood Culture - Preliminary Blood - Venous No growth after 48 hours. 11/29/22 19:23 Blood Culture - Preliminary Blood - Venous No growth after 48 hours. Discharge Plan Discharge Anticipated Discharge Date/Time: 12/03/22 09:28 Patient Disposition: Xfer SNF Discharge Diagnosis: Hyponatremia Referrals: [facility] [Outside] - 1 Week Carmelina Middleton MD [Primary Care Provider] - 1 Week Discharge Medications: New urea 15 gram powder in packet 2 packet PO BID Qty: 8 0RF Continued Xtandi 80 mg tablet 2 tab PO DAILY atenolol 25 mg tablet 25 mg PO DAILY cyanocobalamin (vitamin B-12) 1,000 mcg tablet 2,000 mcg PO DAILY brimonidine 0.2 % drops 1 drp ophthalmic-Left BID Rx Instructions: 12 hours apart Discharge Orders: Discharge Order (Routine); Ordered 12/03/22 Ordered By: Derrick Ott Diet: Advance to usual diet Activity on Discharge: As tolerated Stand Alone Forms: Patient Portal Discharge page Care Plan Goals: Control sodium leve and prevet rehospitalization Health Concerns: Hyponatremia SIADH Plan of Treatment: Follow-up with primary care provider as needed Take all medications as prescribed Drink no more than 1500 cc of water a day Check BMP within a week 9 next Thursday 12/07 or friday 12/08 Assessment: See discharge summary
--- NOTE | 2022-12-03 10:11 | PM.PNNEP ---
Subjective Subjective Date of Service: 12/16/22 Interval history: f/u on hyponatremia Na level is improving Physical Exam Vital Signs: Vital Signs: Last Vital Signs Temp 97.0 F 12/03/22 07:54 Pulse 71 12/03/22 07:54 Resp 18 12/03/22 07:54 BP 114/55 L 12/03/22 07:54 Pulse Ox 93 12/03/22 07:54 O2 Del Method Room Air 12/03/22 07:54 BMI result Body Mass Index 18.9 Const: Other: General: AO X 3, no acute distress, frail Resp: CTA bilateral CVS: S1,S2,RRR GI: +BS, NT, no distention Skin: No rash Neuro: motor grossly intact Psych: appropriate affect Objective Data Labs 11/30/22 05:46 12/02/22 06:15 Microbiology Microbiology Results: Microbiology 11/29/22 22:25 Urine clean catch - Urine muñoz top Urine Culture - Final Pseudomonas aeruginosa 11/29/22 20:03 Blood - Venous Blood Culture - Preliminary No growth after 48 hours. 11/29/22 19:23 Blood - Venous Blood Culture - Preliminary No growth after 48 hours. Procedures Date of Service Date of Service: 12/16/22 Assessment & Plan Assessment and plan (1) Hyponatremia: Status: Resolved Plan 77-year-old man with hypotonic hyponatremia. Clinically appears euvolemic. Serum cortisol is normal. TSH is normal. Urine osmolality is inappropriately elevated and serum osmolality is 276. Recommendation Restrict oral free water intake to 1 L per 24 hours. urea powder 30 g p.o. twice a day. For 1 more days Goal is to correct serum sodium rate of 0.5-1 millimole per L/hr and not exceed more than 8-10 millimoles in 24 hour. We will follow along with the team. Thank you Time Spent With Patient Time: Total time managing care of this patient today ____ minutes. Progress Note: Quality Stroke Does the patient have a stroke diagnosis?: No
[2022-12-03 10:23] LABS: Anion Gap 12 (12-20); Carbon Dioxide 23 mmol/L (22-29); Chloride 100 mmol/L (96-108); Potassium 3.4 mmol/L (3.3-5.1); Sodium 132 mmol/L (135-145)
--- NOTE | 2022-12-03 10:36 | PC.NURSE ---
Patient alert to self and place off on date knows president. Generalized weakness to all extremities, +pp no edema noted. Lungs clear all cruz denies shortness of breath or chest pain. BS+X4 abdomen soft non-tender denies nausea/vomiting. Incont of urine care provided. Good appetite fluids restriction in place. IV removed from left wrist cath intact. Pt to transfer to rehab at 1100.
--- NOTE | 2022-12-03 12:19 | P.CDIM_ITS ---
PROVIDER RESPONSE TEXT: To clarify, the appropriate diagnosis supported by the clinical indicators: Pressure Injury medial coccyx Stage II QUERY TEXT: PHYSICIAN'S DOCUMENTATION REQUEST Date of Query: 12/02/2022 11:40 AM EDT Patient Name: Rick Aparicio Admit Date: 11/30/2022 Dear Derrick Ott, A review of the medical record indicates additional documentation may be needed. Please review below and update the documentation accordingly. Clinical Indicators: Wound assessment nursing notes 12/01 - Pressure injury medial coccyx Stage 2 Based on the above, could you please provide further information regarding the ulcer/wound: Pressure Injury medial coccyx Stage II Other Other (explain)Clinically unable to determine (explain)Thank you, Isabelle Ramirez, CCS, CDIS Use of terms such as suspected, likely, concern for, or probable (associated with a specific diagnosi s that is being evaluated, monitored, or treated as if it exists) are acceptable and can be coded in the inpatient se tting, when documented at the time of discharge. Please use your independent medical judgment in providing your response. THIS QUERY IS PART OF THE PERMANENT MEDICAL RECORD
== END 2022-12-03 11:15 | disposition skilled nursing facility (03) | DRG 644 ==
LOC: HO.ED 22:28 → HO.EDOVER 23:08 → HO.IMC 11-30 07:16
PROVIDERS: Internal Medicine; Nurse Practitioner Acute Care; Student in an Organized Health Care Education/Training Program; Admitting Provider Student in an Organized Health Care Education/Training Program; Emergency Provider Internal Medicine; PCP Internal Medicine; Visit Provider Internal Medicine
DX: E22.2 Syndrome of inappropriate secretion of antidiuretic hormone (principal); E44.0 Moderate protein-calorie malnutrition; Z68.1 Body mass index [BMI] 19.9 or less, adult; F03.90 Unspecified dementia, unspecified severity, without behavioral disturbance, psychotic disturbance, mood disturbance, and anxiety; C61 Malignant neoplasm of prostate; L89.152 Pressure ulcer of sacral region, stage 2; D64.9 Anemia, unspecified; I95.9 Hypotension, unspecified; D63.0 Anemia in neoplastic disease; Z87.891 Personal history of nicotine dependence; Z20.822 Contact with and (suspected) exposure to COVID-19; Z79.899 Other long term (current) drug therapy
CPT/HCPCS: 0241U; 36415; 71045; 80048; 80051; 80053; 81001; 82533; 83605; 83735; 83930; 83935; 84295; 84300; 84443; 84484; 85025; 87040; 87086; 87088; 87186; 93005; 97162; 99222; 99285; J1200; J1650; J3475